=== PATIENT | female | born 1935 | race Caucasian/White ===

== ENCOUNTER 2017-02-07 12:14 | Inpatient (IN) | payer OTHER, BC ==
[2017-02-07 12:23] VITALS: BMI 22.8
[2017-02-07] MEDS ORDERED: SODIUM CHLORIDE 1,000 ML IV STA (13:12)
[2017-02-07] MEDS ORDERED: SODIUM CHLORIDE 0.9% 1000 ML INFUS.BAG IV PRN (13:12)
--- NOTE | 2017-02-07 13:28 | PDOC ---
History of Present Illness - General History Source: Patient, Spouse Exam Limitations: No Limitations - History of Present Illness Initial Comments: 02/07/17 14:21 The patient is an 81-year-old female presenting with her with significant PMH of diabetes, hyperlipidemia, depression, and IBS, who presents to the emergency department after a fall yesterday. Patient reports falling once before 2 days ago, and was on the ground for three hours before being found. She notes hitting her head and right upper extremity. She reports pain and bruising in her right upper and lower extremities. She notes falling again yesterday after experiencing whole body weakness. The patient describes feeling a loss of balance beginning 4 weeks ago. Her reports the patient an episode of altered mental status which lasted 4 days, reduced appetite, and not taking her medication beginning after the fall 4 weeks ago. She notes that her loss of balance has persisted to the present. She reports not using a walker or cane for movement. Patient notes not taking her Metformin until recently. Patient reports her urine is more orange than normal. Patient denies shortness of breath or chest pain. Patient denies neck pain, headache, loss of consciousness, double vision, or dizziness. Patient denies abdominal pain, nausea, or vomiting. Patient denies past surgeries. Patient denies allergies to medications. PCP: Dr. Adkins <Justin Malave - Last Filed: 02/07/17 14:22> <Elmer Contreras - Last Filed: 02/07/17 16:39> - General Chief Complaint: Injury Stated Complaint: FALL/ RT ARM BRUISES Time Seen by Provider: 02/07/17 12:36 Past History <Justin Malave - Last Filed: 02/07/17 14:22> - Past Medical History Diabetes: Yes GI Disorders: Yes Psychiatric Problems: Yes Other medical history: neurological problems? - Psycho/Social/Smoking Cessation Hx Suicidal Ideation: No Smoking History: Never smoked <Elmer Contreras - Last Filed: 02/07/17 16:39> - Past Medical History Allergies/Adverse Reactions: Allergies Allergy/AdvReac Type Severity Reaction Status Date / Time No Known Allergies Allergy Verified 02/07/17 12:18 Review of Systems - Review of Systems Constitutional: No: Chills, Fever HEENTM: No: Nose Congestion, Throat Swelling Respiratory: No: Cough, Shortness of Breath Cardiac (ROS): Yes: Lightheadedness. No: Chest Pain, Edema, Palpitations, Syncope ABD/GI: Yes: Constipated. No: Diarrhea, Nausea, Vomiting : No: Burning, Dysuria, Frequency Musculoskeletal: Yes: Muscle Pain Neurological: Yes: Dizziness. No: Headache, Seizure, Weakness All Other Systems: Reviewed and Negative <Elmer Contreras - Last Filed: 02/07/17 16:39> *Physical Exam - Vital Signs Last Vital Signs Temp Pulse Resp BP Pulse Ox 97.9 F 123 H 20 132/72 93 L 02/07/17 12:18 02/07/17 12:18 02/07/17 12:18 02/07/17 12:18 02/07/17 12:18 - Physical Exam Comments: 02/07/17 14:22 General: Patient is alert and in no acute distress. Speech is clear and appropriate. Head: Atraumatic and nontender. HEENT: Pupils are equal round and reactive to light, extraocular movements are intact. The tympanic membranes are clear, no hemotympanum. No facial deformity/ tenderness, no septal hematoma. The oropharynx is clear. Neck: The trachea is midline, there is no stridor. There is no midline cervical spine tenderness, full range of motion of neck. Chest: Nontender, no ecchymosis or abrasions. Heart: S1-S2, regular rate and rhythm. No murmurs. Lungs: Clear to auscultation bilaterally. Symmetric chest rise and symmetric breath sounds Abdomen: Soft/nontender/nondistended. Bowel sounds are normal. There is no abdominal or flank ecchymosis. Back/Pelvis: +Ecchymosis (6 cm. Linear, around ribs 7,8,9). There is no midline spine tenderness or step-off.. Extremities: +Proximal right upper arm & midforearm circumferential warmth & redness. +Pain with flexion & tension of distal right elbow. There is no extremity deformity or joint swelling. No focal bony tenderness throughout. 2+ distal pulses throughout. Neurovascularly intact distally with pulses and normal sensation. NEURO: Mental status: The patient is alert and oriented x3. Cranial nerves: Cranial nerves II through XII are intact Motor: +Full ROM. The upper extremities are 5 over 5 in all muscle groups. The lower extremities are 5 over 5 in all muscle groups. No pronator drift. Sensation: Sensation is intact to light touch throughout. Cerebellar: Hdpwyt-zvmuhv-eefq is normal in both upper extremities. Heel-knee- parkinson is normal in both lower extremities. Reflexes: 2+ and symmetric in the upper and lower extremities. Gait: Normal. Heel and toe walking are normal. Tandem gait is normal. Skin: +Healing abrasions right lower extremity (knee) Psych: Affect is appropriate. <Justin Malave - Last Filed: 02/07/17 14:22> - Vital Signs Last Vital Signs Temp Pulse Resp BP Pulse Ox 97.9 F 123 H 20 132/72 93 L 02/07/17 12:18 02/07/17 12:18 02/07/17 12:18 02/07/17 12:18 02/07/17 12:18 <Elmer Contreras - Last Filed: 02/07/17 16:39> Heart Score/ECG Review #1 ECG reviewed & interpreted by me at: 12:57 General ECG Interpretation: Sinus Rhythm (tachy at 112), Normal Intervals (qtc 458, qrs 76), No acute ischemic changes (Q V1-V3, III) Compared to previous ECG there are: No significant change (c/w 10/13/03) <Elmer Contreras - Last Filed: 02/07/17 16:39> ED Treatment Course - LABORATORY CBC & Chemistry Diagram: 02/07/17 13:00 02/07/17 13:00 - ADDITIONAL ORDERS Additional order review: Laboratory Results 02/07/17 02/07/17 02/07/17 13:14 13:00 13:00 INR 1.19 H PTT (Actin FS) 32.9 Sodium 138 Potassium 4.5 Chloride 100 Carbon Dioxide 26 Anion Gap 12 BUN 29 H Creatinine 0.7 Creat Clearance w eGFR > 60 Random Glucose 141 H Lactic Acid 1.2 Calcium 9.5 Total Bilirubin 0.7 AST 19 ALT 29 Alkaline Phosphatase 89 Creatine Kinase 154 Troponin I < 0.02 Total Protein 7.1 Albumin 3.5 02/07/17 13:00 RBC 3.88 MCV 93.2 MCHC 33.7 RDW 12.8 MPV 9.0 Neutrophils % 84.7 H Lymphocytes % 6.4 L Monocytes % 7.5 Eosinophils % 1.2 Basophils % 0.2 - Medications Given in the ED: ED Medications Discontinued Medications Generic Name Dose Route Start Last Admin Trade Name Ozzy PRN Reason Stop Dose Admin Sodium Chloride 1,000 mls @ 1,000 mls/hr 02/07/17 13:12 02/07/17 13:33 Normal Saline - IV 02/07/17 14:11 1,000 mls/hr ASDIR STA Administration <Justin Malave - Last Filed: 02/07/17 14:22> - LABORATORY CBC & Chemistry Diagram: 02/07/17 13:00 02/07/17 13:00 - RADIOLOGY Radiology Studies Ordered: Category Date Time Status CERVICAL SPINE CT W/O CONTR [CT] Stat CT Scan 02/07/17 13:[address] WITHOUT CONTRAST [CT] Stat CT Scan 02/07/17 13:13 Ordered CHEST X-RAY PORTABLE* [RAD] Stat Radiology 02/07/17 13:12 Ordered PELVIS [RAD] Stat Radiology 02/07/17 13:13 Ordered <Elmer Contreras - Last Filed: 02/07/17 16:39> Medical Decision Making - Critical Care Time Total Critical Care Time (minutes): 35 Critical Care Statement: The care of this patient involved high complexity decision making to prevent further life threatening deterioration of the patient 's condition and/or to evalute & treat vital organ system(s) failure or risk of failure. - Medical Decision Making 02/07/17 13:50 A portion of this note was documented by scribe services under my direction. I have reviewed the details of the note, within reason, and agree with the documentation with the following case summary and management plan written by me. 81-year-old female with history of hypertension, diabetes, IBS, depression/ anxiety presents with 2 falls over the last 2 days. First fall was unwitnessed 2 days ago, patient was unable to stand on her own and was on the floor for 2-3 hours, found alert on the floor by her who assisted her to her feet and stated she was generally weaker than her baseline but otherwise ambulating. Patient had another witnessed mechanical fall yesterday secondary to her weakness, no head injury or loss of consciousness. Brought in by today for progressive weakness, decreased by mouth intake, and imbalance over the last 48 hours. Of note, patient had a 4 day episode 4 weeks ago of confusion/altered mental status without other focal weakness, symptoms spontaneously resolved and she returned to baseline until 2 days ago. No recent medication changes, no other complaints on review of systems. Exam as noted. Tachycardia, relative hypoxia Right upper extremity swelling and warm erythema with some focal tenderness Otherwise neurologically nonfocal 81-year-old female with falls and generalized weakness. The differential is broad, particularly revolving around the cause of her fall. Question infectious versus metabolic versus STORE MGR ischemia, has evidence of injury versus infection in the right upper extremity. Rule out traumatic injuries. Sepsis protocol initiated given the tachycardia and low O2 sat EKG is sinus without acute ischemic changes. Check CT head and CT C-spine per injury and/or evidence of CVA, right elbow x- ray, chest x-ray and pelvis x-ray Will treat empirically for right upper extremity cellulitis Will need admission 02/07/17 15:23 white count 11.8 with slight left shift, chemistries within normal limits except for BUN of 29, normal creatinine, negative troponin, normal CK. Chest x-ray without acute pathology, CT head with chronic atrophy but no acute disease, CT of the cervical spine without fracture. Urinalysis pending, right upper extremity Doppler and x-ray pending. Plan to proceed with admission. 02/07/17 16:38 Doppler and xray without dvt or fx. Received abx for cellulitis. Straight cath for UA. Accepted for inpatient med/surg by Dr. Aguilar. <Elmer Contreras - Last Filed: 02/07/17 16:39> *DC/Admit/Observation/Transfer - Attestations Scribe Attestion: 02/07/17 14:22 Documentation prepared by Justin Malave, acting as medical data analyst for Elmer Contreras MD. <Justin Malave - Last Filed: 02/07/17 14:22> - Discharge Dispostion Admit: Yes <Elmer Contreras - Last Filed: 02/07/17 16:39> Diagnosis at time of Disposition: Frequent falls, Swelling of right upper extremity, Cellulitis of right upper extremity - Discharge Dispostion Condition at time of disposition: Fair - Referrals Referrals: Elias Adkins MD [Primary Care Provider] -
[2017-02-07] MEDS ORDERED: VANCOMYCIN 1,000 MG in DEXTROSE 5%-WATER - 250 ML IVPB ONE (13:44)
[2017-02-07] MEDS ORDERED: VANCOMYCIN 1 GRAM (PRE-DOCKED) 250 ML IVPB ONE (13:47)
[2017-02-07 13:53] LABS: BASOPHIL 0.2 % (0-2.0); EOSINOPHIL 1.2 % (0-4.5); MCH 31.4 pg (25.7-33.7); MCHC 33.7 g/dl (32.0-36.0); MEAN CELL VOLUME 93.2 fl (80-96); NEUTROPHILS 84.7 % (42.8-82.8); PLATELET COUNT 209 K/MM3 (134-434); RDW 12.8 % (11.6-15.6); WHITE BLOOD COUNT 11.8 K/mm3 (4.0-10.0)
--- NOTE | 2017-02-07 14:07 | EKG ---
Test Reason : Blood Pressure : / mmHG Vent. Rate : 112 BPM Atrial Rate : 112 BPM P-R Int : 146 ms QRS Dur : 076 ms QT Int : 336 ms P-R-T Axes : 035 -31 051 degrees QTc Int : 458 ms SINUS TACHYCARDIA POSSIBLE LEFT ATRIAL ENLARGEMENT LEFT AXIS DEVIATION RSR' V2 ANTERIOR INFARCT (CITED ON OR BEFORE 07-FEB-2017) ABNORMAL ECG WHEN COMPARED WITH ECG OF 13-OCT-2003 15:57, VENT. RATE HAS INCREASED BY 53 BPM QRS AXIS SHIFTED LEFT PROBABLE INFERIOR INFARCT OF INDETERMINATE AGE REPEAT EKG IF CLINICALLY INDICATED Confirmed by CHRIS ARECHIGA MD ([id number]) on 02/07/2017 2:07:23 PM Referred By: Confirmed By:CHRIS ARECHIGA MD
[2017-02-07 14:08] LABS: INR 1.19 (0.82-1.09); PROTHROMBIN TIME (PATIENT) 13.1 SEC (9.98-11.88)
[2017-02-07 14:10] LABS: ACTIVATED PTT 32.9 SECONDS (26.9-34.4)
[2017-02-07 14:15] LABS: ALBUMIN 3.5 g/dl (3.4-5.0); ANION GAP 12 (8-16); BILIRUBIN,TOTAL 0.7 mg/dL (0.2-1.0); CALCIUM 9.5 mg/dL (8.5-10.1); CO2 26 mmol/L (21-32); CREATININE 0.7 mg/dL (0.55-1.02); GLUCOSE,RANDOM 141 mg/dL (74-106); SGOT/AST 19 U/L (15-37); SGPT/ALT 29 U/L (12-78); TOT PROT 7.1 g/dl (6.4-8.2)
[2017-02-07 14:17] LABS: ALK PHOS 89 U/L (45-117); CPK 154 IU/L (26-192); TROPONIN I < 0.02 ng/ml (0.00-0.05)
[2017-02-07 15:37] LABS: VENOUS PH 7.39 (7.32-7.42)
[2017-02-07 15:41] LABS: VENOUS BLOOD GAS HCO3 27.5 meq/L (19-25)
[2017-02-07] MEDS ORDERED: ONDANSETRON 4 MG/2 ML VIAL IVPB PRN (16:41)
[2017-02-07] MEDS ORDERED: PIPERACILLIN/TAZOB 3.375 GM/50 ML PRE-DOCKED IV ONE (16:44)
[2017-02-07] MEDS ORDERED: SODIUM CHLORIDE 1,000 ML IV SCH (16:45)
--- NOTE | 2017-02-07 16:54 | HP ---
Admitting History and Physical - Primary Care Physician PCP: Elias Adkins - Admission Chief Complaint: I fell History of Present Illness: Mrs Winston is a very pleasant 81 year old female who comes in with falls. She had an episode about 4 weeks prior well she fell and became altered. She stopped taking all her medications and eating/drinking per the and was very confused. However he was able to get her to take her medications again and this resolved. Then 2 days ago she had an unwitnessed fall. Patient says she was getting out of her chair and lost her balance and fell. She says she did hit her head at that time and was unable to get up. She was on the floor for about 3-4 hours before she was found. She decided not to come to the hospital then. However she had a significant amount of weakness and difficulty walking secondary to loss of balance. She cannot describe the loss of balance well, but it is not vertigo or lightheadedness. She does not note listing while walking or running into butler. She says that she will be walking and then will start going in a direction without realizing it. Yesterday she sustained a second fall , this one was witnessed and she did not hit her head. She was able to get up with help but since the weakness was worsening she came in. She denies fevers, chills, passing out, change in vision, chest pain, shortness of breath, nausea, vomiting, diarrhea, constipation, or swelling. She says her urine is almost orange. She says she is "black and blue" on her extremities. She notes redness of her right arm. History Source: Patient, Family Member Limitations to Obtaining History: Clinical Condition - Past Medical History Gastrointestinal: Yes: Irritable Bowel Disease Psych: Yes: Anxiety Endocrine: Yes: Diabetes Mellitus Additional Past Medical History: carpal tunnel - Past Surgical History Additional Past Surgical History: wrist injection - Smoking History Smoking history: Never smoked - Alcohol/Substance Use Hx Alcohol Use: No History of Substance Use: reports: None - Social History Usual Living Arrangement: Yes: With Spouse ADL: Independent History of Recent Travel: No Home Medications - Allergies Allergies/Adverse Reactions: Allergies Allergy/AdvReac Type Severity Reaction Status Date / Time No Known Allergies Allergy Verified 02/07/17 12:18 - Home Medications Home Medications (free text): 1. xanax 2mg q4-6h prn. 2. amoxapine 50mg tid. 3. lipitor 40mg qhs. 4. mobic 15mg daily. 5. metformin 500mg bid. 6. metoprolol 25mg bid. 7. sertraline 100mg bid. 8. ambien 10mg qhs Family Disease History - Family Disease History Family Disease History: Diabetes: Mother Review of Systems Findings/Remarks: full review of systems obtained, as per HPI and otherwise negative Physical Examination Vital Signs: Vital Signs Temperature 36.6 C 02/07/17 12:18 Pulse Rate 123 H 02/07/17 12:18 Respiratory Rate 20 02/07/17 12:18 Blood Pressure 132/72 02/07/17 12:18 O2 Sat by Pulse Oximetry (%) 93 L 02/07/17 12:18 Constitutional: Yes: Well Nourished, No Distress, Calm Eyes: Yes: Conjunctiva Clear, EOM Intact, PERRL HENT: Yes: Atraumatic, Normocephalic Cardiovascular: Yes: Regular Rate and Rhythm. No: Gallop, Murmur, Rub Respiratory: Yes: Regular, CTA Bilaterally. No: Rales, Rhonchi, Wheezes Gastrointestinal: Yes: Normal Bowel Sounds, Soft. No: Distention, Tenderness Extremities: Yes: Erythema Edema: No Labs: CBC, BMP 02/07/17 13:00 02/07/17 13:00 Imaging - Results Chest X-ray: Report Reviewed, Image Reviewed X-ray: Report Reviewed Ultrasound: Report Reviewed Problem List - Problems (1) Cellulitis of arm, right Assessment/Plan: -patient with cellulitis of RUE -no DVT -admit to med surg -given vancomycin in the ED, will add zosyn for pseudomonal coverage since diabetic -ID consulted and aware Code(s): L03.113 - CELLULITIS OF RIGHT UPPER LIMB (2) Altered mental status Assessment/Plan: -patient quite lethargic -patient is on xanax, amoxapine, and ambien -suspect may be multifactorial with infection and multiple anxiolytics -consult neurology -decrease xanax to 1mg tid prn -amoxapine not on formulary, will ask to bring from home -while can also cause lethargy, do not want to abruptly cease -may benefit from weaning -will hold ambien currently Code(s): R41.82 - ALTERED MENTAL STATUS, UNSPECIFIED (3) Diabetes Assessment/Plan: -check Hgb A1c -continue metformin -diabetic diet -FSBS and SSI Code(s): E11.9 - TYPE 2 DIABETES MELLITUS WITHOUT COMPLICATIONS (4) Frequent falls Assessment/Plan: -suspect secondary to multiple anxiolytics -fall risk precautions -PT consult -decrease medications as above Code(s): R29.6 - REPEATED FALLS (5) HTN (hypertension) Assessment/Plan: -continue metoprolol Code(s): I10 - ESSENTIAL (PRIMARY) HYPERTENSION (6) HLD (hyperlipidemia) Assessment/Plan: -continue lipitor Code(s): E78.5 - HYPERLIPIDEMIA, UNSPECIFIED (7) Anxiety Assessment/Plan: -as above Code(s): F41.9 - ANXIETY DISORDER, UNSPECIFIED
[2017-02-07] MEDS ORDERED: PIPERACILLIN/TAZOB 3.375 GM 50 ML IVPB ONE (17:07)
--- NOTE | 2017-02-07 17:44 | PN ---
Progress Note (short form) - Note Progress Note: ID Consult dictated Cellulitis R UE Possible sepsis secondary to cellulitis Toxic metabolic encephalopathy Hx falls Await c/s Empiric cefazolin elevationm
[2017-02-07 18:14] LABS: URINE APPEARANCE CLEAR; URINE BILIRUBIN NEGATIVE (NEGATIVE); URINE BLOOD NEGATIVE (NEGATIVE); URINE COLOR YELLOW; URINE GLUCOSE (UA) NEGATIVE (NEGATIVE); URINE KETONE TRACE (NEGATIVE); URINE NITRITE NEGATIVE (NEGATIVE); URINE PROTEIN NEGATIVE (NEGATIVE); URINE UROBILINOGEN NEGATIVE mg/dL (0.2-1.0)
[2017-02-07 18:26] LABS: URINE LEUK ESTERASE 2+ (NEGATIVE)
[2017-02-07] MEDS: CEFAZOLIN 2 GM/D5W 50 ML IVPB SCH (19:03)
[2017-02-07] MEDS ORDERED: ACETAMINOPHEN 325 MG TABLET (FP) ONE (19:14)
[2017-02-07] MEDS: ACETAMINOPHEN 325 MG TABLET (FP) PO PRN (19:16)
[2017-02-07 19:33] LABS: URINE HYALINE CAST 1 /lpf; URINE MUCUS RARE; URINE RBC 1 /hpf (0-3); URINE WBC 42 /hpf (3-5)
[2017-02-07] MEDS: INSULIN SLIDING SCALE (NOVOLOG) 1 VIAL SQ SCH (21:54)
[2017-02-07] MEDS: ATORVASTATIN CA 40 MG TABLET (FP) PO SCH (21:57)
[2017-02-07] MEDS: METOPROLOL TARTRATE 25 MG TABLET (FP) PO SCH (21:57)
[2017-02-07] MEDS: SERTRALINE HCL 50 MG TABLET (FP) PO SCH (21:57)
[2017-02-08] MEDS: ACETAMINOPHEN 325 MG TABLET (FP) PO PRN (00:23)
[2017-02-08] MEDS: ALPRAZolam 2 MG TABLET PO PRN ×3 (00:23→21:11)
[2017-02-08] MEDS: CEFAZOLIN 2 GM/D5W 50 ML IVPB SCH ×3 (01:07→17:46)
[2017-02-08] MEDS: metFORMIN HCL 500 MG TABLET (FP) PO SCH ×2 (06:15→17:46)
[2017-02-08] MEDS: INSULIN SLIDING SCALE (NOVOLOG) 1 VIAL SQ SCH ×4 (06:15→21:09)
[2017-02-08 07:14] LABS: BASOPHIL 0.2 % (0-2.0); EOSINOPHIL 3.7 % (0-4.5); MCH 31.5 pg (25.7-33.7); MCHC 34.5 g/dl (32.0-36.0); MEAN CELL VOLUME 91.5 fl (80-96); MEAN PLT VOLUME 8.1 fl (7.5-11.1); NEUTROPHILS 78.7 % (42.8-82.8); PLATELET COUNT 209 K/MM3 (134-434); RDW 12.3 % (11.6-15.6); WHITE BLOOD COUNT 7.3 K/mm3 (4.0-10.0)
[2017-02-08 07:32] LABS: ANION GAP 9 (8-16); CALCIUM 8.7 mg/dL (8.5-10.1); CO2 25 mmol/L (21-32); CREATININE 0.5 mg/dL (0.55-1.02); GLUCOSE,RANDOM 145 mg/dL (74-106); MAGNESIUM 1.7 mg/dL (1.8-2.4); PHOSPHOROUS 2.5 mg/dL (2.5-4.9)
--- NOTE | 2017-02-08 07:46 | CONS ---
DATE OF CONSULTATION: DATE OF DICTATION: 02/07/2017 The patient is an 81-year-old female who is evaluated for cellulitis of the right upper extremity. History was obtained from the patient as well as her present at the time of the examination. The patient has had a history of recurrent falls at home. She had recently fallen at home and had been on the floor for approximately 3 hours. Prior to admission she fell sustaining trauma to her right upper and lower extremities as well as her head. She presented to the emergency room where she is found to have cellulitis of the right upper extremity. According to the notes she has had some increased confusion over the past several days and anorexia. She denies any pain at the present time. No reported fever or shaking chills. PAST MEDICAL HISTORY: Positive for diabetes mellitus, hyperlipidemia, irritable bowel, depression. ALLERGIES: No known allergies. MEDICATIONS: Include Zofran, Lovenox, Zoloft, Xanax, Lopressor, Glucophage, and Lipitor. SOCIAL HISTORY: She resides at home with her . She is a nonsmoker, nondrinker. SYSTEMS REVIEW: Neurologic: Positive for altered mentation. Cardiac: Negative chest pain or palpitations. Respiratory: Negative cough or sputum production. Gastrointestinal: Negative vomiting or diarrhea. Genitourinary: Negative for urinary tract infection. LABORATORY DATA: White count 11.8, hematocrit 36.1, platelet count 209, BUN 29, creatinine 0.7, liver enzymes normal, blood and urine cultures pending. Chest x-ray negative for acute infiltrate. Doppler exam right upper extremity negative for a DVT. X-ray negative for fracture. PHYSICAL EXAMINATION: General: She is awake. She appears mildly confused. Vital Signs: Temperature 98.2, blood pressure 122/76, pulse 95 regular, respirations 20 per minute. HEENT: Sclerae anicteric. Heart: Heart sounds S1, S2. Lungs: Clear. Abdomen: Soft. No tenderness elicited, no mass, rebound or rigidity. Extremities: There is diffuse swelling of the right upper extremity from the area below the shoulder to the mid forearm. There is confluent erythema, warmth, tenderness, and induration involving the extensor aspect of the right upper extremity. There is increased induration and erythema at the ulnar aspect of the antecubital fossa. There is slight fluctuance present over the olecranon process. There are abrasions present at the olecranon process, the right knee and right lateral malleolus. The abrasion is dry. There is no purulent drainage. There is no significant surrounding erythema. IMPRESSION: 1. Cellulitis of the right upper extremity. 2. Possible sepsis secondary to cellulitis. 3. Toxic metabolic encephalopathy. 4. History of recurrent falls. Await culture results. Empiric antibiotic coverage with cefazolin 2 gm IV piggyback every 8 hours. Elevation. Will follow. Thank you for the kind referral. LADY LOPEZ M.D. [id number]
[2017-02-08] MEDS: METOPROLOL TARTRATE 25 MG TABLET (FP) PO SCH ×2 (09:41→21:09)
[2017-02-08] MEDS: SERTRALINE HCL 50 MG TABLET (FP) PO SCH ×2 (09:41→21:08)
[2017-02-08] MEDS: ENOXAPARIN NA (PORCINE) 40 MG/0.4 ML DISP.SYRIN SQ SCH (09:42)
--- NOTE | 2017-02-08 10:01 | PN ---
Progress Note (short form) - Note Progress Note: patient reports decrease in swelling of the right arm Vital Signs Period Temp Pulse Resp BP Sys/Mazariegos Pulse Ox Last 24 Hr 97.9 F-99.8 F 88-123 18-20 122-155/65-87 93-98 cor-rrr lungs clear right arm with erythema, induration, warmth ( area marked by me) no fluctuance, small abrasion at olecronan bursa- no drainage diffuse swelling of the hand as well abd soft, nt ext- abrasions of the knees and left hand 3rd finger CBC, BMP 02/08/17 06:00 02/08/17 06:00 a/p cellulitis of the right arm s/p fall day #1 cefazolin improved per patient continue cefazolin leukocytosis resolved Problem List - Problems (1) Cellulitis of arm, right Code(s): L03.113 - CELLULITIS OF RIGHT UPPER LIMB (2) Frequent falls Code(s): R29.6 - REPEATED FALLS
[2017-02-08] MEDS ORDERED: MAGNESIUM OXIDE 400 MG TABLET (FP) PO ONE (12:21)
--- NOTE | 2017-02-08 12:21 | PN ---
Progress Note, Physician Chief Complaint: Ms Winston says she is feeling better today. Still with pain in her right arm with swelling. No cp, sob, n/v. - Current Medication List Current Medications: Active Medications Acetaminophen (Tylenol -) 650 mg PO Q4H PRN PRN Reason: FEVER OR PAIN Last Admin: 02/08/17 00:23 Dose: 650 mg Alprazolam (Xanax -) 1 mg PO Q8H PRN PRN Reason: ANXIETY Last Admin: 02/08/17 09:50 Dose: 1 mg Atorvastatin Calcium (Lipitor -) [address] [facility] Last Admin: 02/07/17 21:57 Dose: 40 mg Enoxaparin Sodium (Lovenox -) [address] [facility] Last Admin: 02/08/17 09:42 Dose: 40 mg Cefazolin Sodium/Dextrose (Ancef 2 Gm Premixed Ivpb -) 50 mls @ 100 mls/hr IVPB Q8H-IV [facility] Last Admin: 02/08/17 09:42 Dose: 100 mls/hr Insulin Aspart (Novolog Vial Sliding Scale -) [address] [facility] PRN Reason: Protocol Last Admin: 02/08/17 11:55 Dose: Not Given Metformin HCl (Glucophage -) 500 mg PO BID@0700,1630 [facility] Last Admin: 02/08/17 06:15 Dose: 500 mg Metoprolol Tartrate (Lopressor -) [address] [facility] Last Admin: 02/08/17 09:41 Dose: 25 mg Ondansetron HCl (Zofran Injection) 4 mg IVPB Q6H PRN PRN Reason: NAUSEA Sertraline HCl (Zoloft -) [address] [facility] Last Admin: 02/08/17 09:41 Dose: 100 mg Sodium Chloride (Normal Saline -) 570 ml IV Q20M PRN PRN Reason: MAP<65mm Hg OR SBP <90 - Objective Vital Signs: Vital Signs Temperature 37.7 C H 02/08/17 06:31 Pulse Rate 88 02/08/17 06:31 Respiratory Rate 20 02/08/17 06:31 Blood Pressure 122/65 02/08/17 06:31 O2 Sat by Pulse Oximetry (%) 95 02/07/17 21:00 Constitutional: Yes: Well Nourished, No Distress, Calm Cardiovascular: Yes: Regular Rate and Rhythm. No: Gallop, Murmur, Rub Respiratory: Yes: Regular, CTA Bilaterally. No: Rales, Rhonchi, Wheezes Gastrointestinal: Yes: Normal Bowel Sounds, Soft. No: Distention, Tenderness Extremities: Yes: Erythema (RUE, slightly improved today) Edema: Yes Edema: RUE: Trace Labs: CBC, BMP 02/08/17 06:00 02/08/17 06:00 INR, PTT INR 1.19 (0.82-1.09) H 02/07/17 13:00 Problem List - Problems (1) Cellulitis of arm, right Code(s): L03.113 - CELLULITIS OF RIGHT UPPER LIMB (2) Altered mental status Code(s): R41.82 - ALTERED MENTAL STATUS, UNSPECIFIED (3) Diabetes Code(s): E11.9 - TYPE 2 DIABETES MELLITUS WITHOUT COMPLICATIONS (4) Frequent falls Code(s): R29.6 - REPEATED FALLS (5) HTN (hypertension) Code(s): I10 - ESSENTIAL (PRIMARY) HYPERTENSION (6) HLD (hyperlipidemia) Code(s): E78.5 - HYPERLIPIDEMIA, UNSPECIFIED (7) Anxiety Code(s): F41.9 - ANXIETY DISORDER, UNSPECIFIED Assessment/Plan (1) Cellulitis of arm, right Assessment/Plan: -appreciate ID assistance -continue cefazolin -improving Code(s): L03.113 - CELLULITIS OF RIGHT UPPER LIMB (2) Altered mental status Assessment/Plan: -much improved today -multifactorial -continue treating cellulitis -continue with decrease in anxiolytics -neurology consulted Code(s): R41.82 - ALTERED MENTAL STATUS, UNSPECIFIED (3) Diabetes Assessment/Plan: -continue metformin and diabetic diet Code(s): E11.9 - TYPE 2 DIABETES MELLITUS WITHOUT COMPLICATIONS (4) Frequent falls Assessment/Plan: -PT consulted Code(s): R29.6 - REPEATED FALLS (5) HTN (hypertension) Assessment/Plan: -continue metoprolol Code(s): I10 - ESSENTIAL (PRIMARY) HYPERTENSION (6) HLD (hyperlipidemia) Assessment/Plan: -continue lipitor Code(s): E78.5 - HYPERLIPIDEMIA, UNSPECIFIED (7) Anxiety Assessment/Plan: -as above Code(s): F41.9 - ANXIETY DISORDER, UNSPECIFIED
--- NOTE | 2017-02-08 19:29 | CON.NEURO ---
Consult - History of Present Illness History of Present Illness: 81 year old female , had a fall and developed cellulitis and brought to hospital when she stopped taking all her medication. Her ambien was stopped and her Amoxapine and ambien was stopped , xanax was reduced. She has been feeling better . She was by herself , at the time of interview. She is feeling better. She has two fall recently, she denies any feeling of vertigo sensation or feeling everything darkening. She denies dysphagia, dysarthria or diplopia or any weakness numbness. Since Medication has been stopped she is feelign better. Spoke to nursing staff and she has been better mental status muhammad,( more alert and communicative) Medical History -- Irritable bowel disease, anxiety, Diabetes. - Past Medical History Gastrointestinal: Yes: Irritable Bowel Disease Psych: Yes: Anxiety Endocrine: Yes: Diabetes Mellitus - Alcohol/Substance Use Hx Alcohol Use: No History of Substance Use: reports: None - Smoking History Smoking history: Never smoked - Social History ADL: Independent History of Recent Travel: No Home Medications - Allergies Allergies/Adverse Reactions: Allergies Allergy/AdvReac Type Severity Reaction Status Date / Time No Known Allergies Allergy Verified 02/07/17 12:18 - Home Medications Home Medications: Ambulatory Orders Alprazolam 2 mg PO QID 02/07/17 Amoxapine [Asendin -] 50 mg PO TID 02/07/17 Atorvastatin Ca [Lipitor] 40 mg PO HS 02/07/17 Meloxicam [Mobic (Nf) -] 15 mg PO DAILY 02/07/17 Metformin HCl [Metformin HCl ER] 500 mg PO BID 02/07/17 Metoprolol Succinate [Toprol Xl -] 25 mg PO DAILY 02/07/17 Sertraline HCl [Zoloft] 100 mg PO DAILY 02/07/17 Zolpidem Tartrate [Edluar] 10 mg SL DAILY 02/07/17 Family Disease History - Family Disease History Family Disease History: Diabetes: Mother Physical Exam-Neuro Vital Signs: Vital Signs Temperature 98.4 F 02/08/17 14:45 Pulse Rate 95 H 02/08/17 14:45 Respiratory Rate 16 02/08/17 14:45 Blood Pressure 143/87 02/08/17 14:45 O2 Sat by Pulse Oximetry (%) 95 02/07/17 21:00 Labs: CBC, BMP 02/08/17 06:00 02/08/17 06:00 INR, PTT INR 1.19 (0.82-1.09) H 02/07/17 13:00 NIH Stroke Scale - Total Score NIH Stroke Scale Score: 0 Imaging - Results Cat Scan: Report Reviewed, Image Reviewed Assessment/Plan cc confusion HPI 81 year old female , had a fall and developed cellulitis and brought to hospital when she stopped taking all her medication. Her ambien was stopped and her Amoxapine and ambien was stopped , xanax was reduced. She has been feeling better . She was by herself , at the time of interview. She is feeling better. She has two fall recently, she denies any feeling of vertigo sensation or feeling everything darkening. She denies dysphagia, dysarthria or diplopia or any weakness numbness. Since Medication has been stopped she is feelign better. Spoke to nursing staff and she has been better mental status muhammad,( more alert and communicative) Medical History -- Irritable bowel disease, anxiety, Diabetes. Lives with her and denies any toxic habits ROS reviewed in chart Home Medications 1. xanax 2mg q4-6h prn. 2. amoxapine 50mg tid. 3. lipitor 40mg qhs. 4. mobic 15mg daily. 5. metformin 500mg bid. 6. metoprolol 25mg bid. 7. sertraline 100mg bid. 8. ambien 10mg qhs Neurological Examination Vital stable alert , follow command and she is able to follow complex command She told me that today is 23 february, otherwise she was able to name day of week and month. EOMI, No facial asymmetry, no facial asymmetry sensation is normal, refelx are [address] head reviewed is normal Assessment- Transient confusion , now getting better. Most likely due to intercurrent illness ( Cellulitis) and Over medicated by sedative and psych medication( xanax, ambien and amoxapine) Plan she has been feeling better after cutting down some of psych medication and antibiotic treatment for cellulitis - Unlikey to be stroke or meningitis - would like to evaluate in detail as outpatient for any Mild Cogntive Impairment. - no further recommendation from neurological point of view Thanks for consult Alirio Gamble MD Neurology Attending.
[2017-02-08] MEDS: ATORVASTATIN CA 40 MG TABLET (FP) PO SCH (21:08)
[2017-02-09] MEDS: CEFAZOLIN 2 GM/D5W 50 ML IVPB SCH (01:50)
[2017-02-09] MEDS: metFORMIN HCL 500 MG TABLET (FP) PO SCH ×2 (06:19→16:21)
[2017-02-09] MEDS: INSULIN SLIDING SCALE (NOVOLOG) 1 VIAL SQ SCH ×2 (06:22→18:23)
--- NOTE | 2017-02-09 09:11 | PN ---
Progress Note, Physician Chief Complaint: ID Cefazolin Afebrile More alert oriented - Current Medication List Current Medications: Active Medications Acetaminophen (Tylenol -) 650 mg PO Q4H PRN PRN Reason: FEVER OR PAIN Last Admin: 02/08/17 00:23 Dose: 650 mg Alprazolam (Xanax -) 1 mg PO Q8H PRN PRN Reason: ANXIETY Last Admin: 02/08/17 21:11 Dose: 1 mg Atorvastatin Calcium (Lipitor -) 40 mg PO HS [facility] Last Admin: 02/08/17 21:08 Dose: 40 mg Enoxaparin Sodium (Lovenox -) 40 mg SQ DAILY [facility] Last Admin: 02/08/17 09:42 Dose: 40 mg Cefazolin Sodium/Dextrose (Ancef 2 Gm Premixed Ivpb -) 50 mls @ 100 mls/hr IVPB Q8H-IV [facility] Last Admin: 02/09/17 01:50 Dose: 100 mls/hr Insulin Aspart (Novolog Vial Sliding Scale -) 1 vial SQ ACHS [facility] PRN Reason: Protocol Last Admin: 02/09/17 06:22 Dose: Not Given Metformin HCl (Glucophage -) 500 mg PO BID@0700,1630 [facility] Last Admin: 02/09/17 06:19 Dose: 500 mg Metoprolol Tartrate (Lopressor -) 25 mg PO BID [facility] Last Admin: 02/08/17 21:09 Dose: 25 mg Ondansetron HCl (Zofran Injection) 4 mg IVPB Q6H PRN PRN Reason: NAUSEA Sertraline HCl (Zoloft -) 100 mg PO BID [facility] Last Admin: 02/08/17 21:08 Dose: 100 mg Sodium Chloride (Normal Saline -) 570 ml IV Q20M PRN PRN Reason: MAP<65mm Hg OR SBP <90 - Objective Vital Signs: Vital Signs Temperature 97.0 F L 02/09/17 08:03 Pulse Rate 99 H 02/09/17 08:03 Respiratory Rate 18 02/09/17 08:03 Blood Pressure 170/89 02/09/17 08:03 O2 Sat by Pulse Oximetry (%) 98 02/08/17 21:00 Constitutional: Yes: Well Nourished, No Distress Extremities: Yes: Other (arm erythema less abrasion elbow No adenopathy axillary ) Labs: CBC, BMP 02/08/17 06:00 02/08/17 06:00 INR, PTT INR 1.19 (0.82-1.09) H 02/07/17 13:00 Assessment/Plan Microbiology 02/07/17 13:14 Blood - Peripheral Venous Blood Culture - Preliminary NO GROWTH OBTAINED AFTER 24 HOURS, INCUBATION TO CONTINUE FOR 4 DAYS. 02/07/17 13:14 Blood - Peripheral Venous Blood Culture - Preliminary NO GROWTH OBTAINED AFTER 24 HOURS, INCUBATION TO CONTINUE FOR 4 DAYS. Laboratory Tests 02/08/17 02/08/17 06:00 06:00 WBC 7.3 D Hgb 11.4 Plt Count 209 BUN 16 D Creatinine 0.5 L D Assessment Diabetic with right arm celllulitis improving Plan Continue Cefazolin today 1 gr q8 H Consider switch to Keflex 500mg tid for 5 days perhaps tomorrow Discussed Dr Adkins re discharge plan [place] HOFFMANN
[2017-02-09] MEDS ORDERED: DEXTROSE 5%-WATER - 50 ML IVPB ONE ×2 (09:51→17:58)
[2017-02-09] MEDS ORDERED: ceFAZolin SODIUM 1 GM VIAL ONE ×2 (09:51→17:58)
[2017-02-09] MEDS: ENOXAPARIN NA (PORCINE) 40 MG/0.4 ML DISP.SYRIN SQ SCH (10:17)
[2017-02-09] MEDS: CEFAZOLIN 1 GM in DEXTROSE 5%-WATER - 50 ML IVPB SCH ×2 (10:17→18:02)
[2017-02-09] MEDS: METOPROLOL TARTRATE 25 MG TABLET (FP) PO SCH ×2 (10:18→22:39)
[2017-02-09] MEDS: SERTRALINE HCL 50 MG TABLET (FP) PO SCH ×2 (10:18→22:38)
--- NOTE | 2017-02-09 11:48 | PN ---
Progress Note, Physician Chief Complaint: Ms Winston continues to improve. Says her arm is feeling better. Complains of a "nervous stomach". Denies cp and sob. - Current Medication List Current Medications: Active Medications Acetaminophen (Tylenol -) 650 mg PO Q4H PRN PRN Reason: FEVER OR PAIN Last Admin: 02/08/17 00:23 Dose: 650 mg Alprazolam (Xanax -) 1 mg PO Q8H PRN PRN Reason: ANXIETY Last Admin: 02/08/17 21:11 Dose: 1 mg Atorvastatin Calcium (Lipitor -) 40 mg PO HS [facility] Last Admin: 02/08/17 21:08 Dose: 40 mg Enoxaparin Sodium (Lovenox -) 40 mg SQ DAILY [facility] Last Admin: 02/09/17 10:17 Dose: 40 mg Cefazolin Sodium 1 gm/ (Dextrose) 50 mls @ 100 mls/hr IVPB Q8H-IV [facility] Last Admin: 02/09/17 10:17 Dose: 100 mls/hr Metformin HCl (Glucophage -) 500 mg PO BID@0700,1630 [facility] Last Admin: 02/09/17 06:19 Dose: 500 mg Metoprolol Tartrate (Lopressor -) 25 mg PO BID [facility] Last Admin: 02/09/17 10:18 Dose: 25 mg Ondansetron HCl (Zofran Injection) 4 mg IVPB Q6H PRN PRN Reason: NAUSEA Sertraline HCl (Zoloft -) 100 mg PO BID [facility] Last Admin: 02/09/17 10:18 Dose: 100 mg Sodium Chloride (Normal Saline -) 570 ml IV Q20M PRN PRN Reason: MAP<65mm Hg OR SBP <90 - Objective Vital Signs: Vital Signs Temperature 36.6 C 02/09/17 09:23 Pulse Rate 105 H 02/09/17 09:23 Respiratory Rate 20 02/09/17 09:23 Blood Pressure 156/80 02/09/17 09:23 O2 Sat by Pulse Oximetry (%) 98 02/09/17 09:00 Constitutional: Yes: Well Nourished, No Distress, Calm Cardiovascular: Yes: Regular Rate and Rhythm. No: Gallop, Murmur, Rub Respiratory: Yes: Regular, CTA Bilaterally. No: Rales, Rhonchi, Wheezes Gastrointestinal: Yes: Normal Bowel Sounds, Soft. No: Distention, Tenderness Extremities: Yes: Erythema (improving) Edema: Yes Edema: LUE: Trace (improving) Labs: CBC, BMP 02/08/17 06:00 02/08/17 06:00 INR, PTT INR 1.19 (0.82-1.09) H 02/07/17 13:00 Problem List - Problems (1) Cellulitis of arm, right Code(s): L03.113 - CELLULITIS OF RIGHT UPPER LIMB (2) Altered mental status Code(s): R41.82 - ALTERED MENTAL STATUS, UNSPECIFIED (3) Diabetes Code(s): E11.9 - TYPE 2 DIABETES MELLITUS WITHOUT COMPLICATIONS (4) Frequent falls Code(s): R29.6 - REPEATED FALLS (5) HTN (hypertension) Code(s): I10 - ESSENTIAL (PRIMARY) HYPERTENSION (6) HLD (hyperlipidemia) Code(s): E78.5 - HYPERLIPIDEMIA, UNSPECIFIED (7) Anxiety Code(s): F41.9 - ANXIETY DISORDER, UNSPECIFIED Assessment/Plan (1) Cellulitis of arm, right Assessment/Plan: -appreciate ID assistance -continue cefazolin -improving -possible change to keflex tomorrow per ID recommendation Code(s): L03.113 - CELLULITIS OF RIGHT UPPER LIMB (2) Altered mental status Assessment/Plan: -appreciate neurology assistance -multifactorial, anxiolytics and metabolic encephalopathy -resolved, now at baseline Code(s): R41.82 - ALTERED MENTAL STATUS, UNSPECIFIED (3) Diabetes Assessment/Plan: -continue metformin and diabetic diet -can d/c SSI and FSBS Code(s): E11.9 - TYPE 2 DIABETES MELLITUS WITHOUT COMPLICATIONS (4) Frequent falls Assessment/Plan: -PT consulted and following Code(s): R29.6 - REPEATED FALLS (5) HTN (hypertension) Assessment/Plan: -continue metoprolol Code(s): I10 - ESSENTIAL (PRIMARY) HYPERTENSION (6) HLD (hyperlipidemia) Assessment/Plan: -continue lipitor Code(s): E78.5 - HYPERLIPIDEMIA, UNSPECIFIED (7) Anxiety Assessment/Plan: -as above Code(s): F41.9 - ANXIETY DISORDER, UNSPECIFIED
[2017-02-09] MEDS: ALPRAZolam 2 MG TABLET PO PRN ×2 (12:07→20:36)
[2017-02-09] MEDS: ACETAMINOPHEN 325 MG TABLET (FP) PO PRN (13:42)
[2017-02-09] MEDS: ATORVASTATIN CA 40 MG TABLET (FP) PO SCH (22:39)
[2017-02-10] MEDS ORDERED: DEXTROSE 5%-WATER - 50 ML IVPB ONE ×3 (01:52→17:35)
[2017-02-10] MEDS ORDERED: ceFAZolin SODIUM 1 GM VIAL ONE ×3 (01:52→17:34)
[2017-02-10] MEDS: CEFAZOLIN 1 GM in DEXTROSE 5%-WATER - 50 ML IVPB SCH ×3 (02:10→18:12)
[2017-02-10] MEDS: ALPRAZolam 2 MG TABLET PO PRN ×2 (03:55→21:14)
[2017-02-10] MEDS: metFORMIN HCL 500 MG TABLET (FP) PO SCH ×2 (06:22→18:12)
[2017-02-10 08:35] LABS: BASOPHIL 0.3 % (0-2.0); MCH 30.8 pg (25.7-33.7); MCHC 33.9 g/dl (32.0-36.0); MEAN PLT VOLUME 8.1 fl (7.5-11.1); NEUTROPHILS 80.6 % (42.8-82.8); PLATELET COUNT 291 K/MM3 (134-434); RDW 12.4 % (11.6-15.6); WHITE BLOOD COUNT 12.9 K/mm3 (4.0-10.0)
[2017-02-10 08:54] LABS: ANION GAP 7 (8-16); CALCIUM 9.2 mg/dL (8.5-10.1); CO2 30 mmol/L (21-32); CREATININE 0.5 mg/dL (0.55-1.02); GLUCOSE,RANDOM 133 mg/dL (74-106); MAGNESIUM 1.7 mg/dL (1.8-2.4); PHOSPHOROUS 2.8 mg/dL (2.5-4.9)
[2017-02-10] MEDS: METOPROLOL TARTRATE 25 MG TABLET (FP) PO SCH ×2 (11:04→21:15)
[2017-02-10] MEDS: SERTRALINE HCL 50 MG TABLET (FP) PO SCH ×2 (11:04→21:14)
[2017-02-10] MEDS: ENOXAPARIN NA (PORCINE) 40 MG/0.4 ML DISP.SYRIN SQ SCH (11:04)
--- NOTE | 2017-02-10 13:38 | PN ---
Progress Note, Physician Chief Complaint: Ms Winston says she is feeling better, but still with some pain in her arm with redness. Denies cp, sob, n/v. - Current Medication List Current Medications: Active Medications Acetaminophen (Tylenol -) 650 mg PO Q4H PRN PRN Reason: FEVER OR PAIN Last Admin: 02/09/17 13:42 Dose: 650 mg Alprazolam (Xanax -) 1 mg PO Q8H PRN PRN Reason: ANXIETY Last Admin: 02/10/17 03:55 Dose: 1 mg Atorvastatin Calcium (Lipitor -) 40 mg PO HS [facility] Last Admin: 02/09/17 22:39 Dose: 40 mg Enoxaparin Sodium (Lovenox -) 40 mg SQ DAILY [facility] Last Admin: 02/10/17 11:04 Dose: 40 mg Cefazolin Sodium 1 gm/ (Dextrose) 50 mls @ 100 mls/hr IVPB Q8H-IV [facility] Last Admin: 02/10/17 11:04 Dose: 100 mls/hr Metformin HCl (Glucophage -) 500 mg PO BID@0700,1630 [facility] Last Admin: 02/10/17 06:22 Dose: 500 mg Metoprolol Tartrate (Lopressor -) 25 mg PO BID [facility] Last Admin: 02/10/17 11:04 Dose: 25 mg Ondansetron HCl (Zofran Injection) 4 mg IVPB Q6H PRN PRN Reason: NAUSEA Sertraline HCl (Zoloft -) 100 mg PO BID [facility] Last Admin: 02/10/17 11:04 Dose: 100 mg Sodium Chloride (Normal Saline -) 570 ml IV Q20M PRN PRN Reason: MAP<65mm Hg OR SBP <90 - Objective Vital Signs: Vital Signs Temperature 38.2 C H 02/09/17 18:00 Pulse Rate 92 H 02/09/17 18:00 Respiratory Rate 20 02/09/17 21:00 Blood Pressure 140/81 02/09/17 18:00 O2 Sat by Pulse Oximetry (%) 98 02/09/17 21:00 Constitutional: Yes: Well Nourished, No Distress, Calm Cardiovascular: Yes: Regular Rate and Rhythm. No: Gallop, Murmur, Rub Respiratory: Yes: Regular, CTA Bilaterally. No: Rales, Rhonchi, Wheezes Gastrointestinal: Yes: Normal Bowel Sounds, Soft. No: Distention, Tenderness Extremities: Yes: Erythema (R elbow, improved) Edema: RUE: Trace Labs: CBC, BMP 02/10/17 07:15 02/10/17 07:15 INR, PTT INR 1.19 (0.82-1.09) H 02/07/17 13:00 Problem List - Problems (1) Cellulitis of arm, right Code(s): L03.113 - CELLULITIS OF RIGHT UPPER LIMB (2) Altered mental status Code(s): R41.82 - ALTERED MENTAL STATUS, UNSPECIFIED (3) Diabetes Code(s): E11.9 - TYPE 2 DIABETES MELLITUS WITHOUT COMPLICATIONS (4) Frequent falls Code(s): R29.6 - REPEATED FALLS (5) HTN (hypertension) Code(s): I10 - ESSENTIAL (PRIMARY) HYPERTENSION (6) HLD (hyperlipidemia) Code(s): E78.5 - HYPERLIPIDEMIA, UNSPECIFIED (7) Anxiety Code(s): F41.9 - ANXIETY DISORDER, UNSPECIFIED Assessment/Plan (1) Cellulitis of arm, right Assessment/Plan: -appreciate ID assistance -patient with fevers and increased WBC today -erythema looking improved -however considering fevers and leukocytosis still needing IV antibiotics -cefazolin decreased to 1gm q8h Code(s): L03.113 - CELLULITIS OF RIGHT UPPER LIMB (2) Altered mental status Assessment/Plan: -appreciate neurology assistance -multifactorial, anxiolytics and metabolic encephalopathy -resolved, now at baseline Code(s): R41.82 - ALTERED MENTAL STATUS, UNSPECIFIED (3) Diabetes Assessment/Plan: -continue metformin and diabetic diet -can d/c SSI and FSBS Code(s): E11.9 - TYPE 2 DIABETES MELLITUS WITHOUT COMPLICATIONS (4) Frequent falls Assessment/Plan: -PT consulted and following Code(s): R29.6 - REPEATED FALLS (5) HTN (hypertension) Assessment/Plan: -continue metoprolol Code(s): I10 - ESSENTIAL (PRIMARY) HYPERTENSION (6) HLD (hyperlipidemia) Assessment/Plan: -continue lipitor Code(s): E78.5 - HYPERLIPIDEMIA, UNSPECIFIED (7) Anxiety Assessment/Plan: -as above Code(s): F41.9 - ANXIETY DISORDER, UNSPECIFIED
[2017-02-10] MEDS: ATORVASTATIN CA 40 MG TABLET (FP) PO SCH (21:14)
[2017-02-11] MEDS ORDERED: DEXTROSE 5%-WATER - 50 ML IVPB ONE ×4 (00:17→20:53)
[2017-02-11] MEDS ORDERED: ceFAZolin SODIUM 1 GM VIAL ONE ×4 (00:17→20:53)
[2017-02-11] MEDS: CEFAZOLIN 1 GM in DEXTROSE 5%-WATER - 50 ML IVPB SCH ×3 (02:30→17:50)
[2017-02-11] MEDS: metFORMIN HCL 500 MG TABLET (FP) PO SCH ×2 (06:08→17:50)
[2017-02-11 08:01] LABS: ANION GAP 9 (8-16); CALCIUM 9.2 mg/dL (8.5-10.1); CO2 28 mmol/L (21-32); CREATININE 0.6 mg/dL (0.55-1.02); GLUCOSE,RANDOM 141 mg/dL (74-106); MAGNESIUM 1.6 mg/dL (1.8-2.4); PHOSPHOROUS 2.9 mg/dL (2.5-4.9)
[2017-02-11 08:12] LABS: BASOPHIL 0.2 % (0-2.0); EOSINOPHIL 1.5 % (0-4.5); MCHC 35.5 g/dl (32.0-36.0); MEAN PLT VOLUME 8.2 fl (7.5-11.1); NEUTROPHILS 81.9 % (42.8-82.8); PLATELET COUNT 275 K/MM3 (134-434); RDW 12.6 % (11.6-15.6); WHITE BLOOD COUNT 9.1 K/mm3 (4.0-10.0)
--- NOTE | 2017-02-11 08:42 | PN ---
Progress Note (short form) - Note Progress Note: Patient seen and examined. Chart reviewed. Patient well known to me from outpatient care. Currently sitting up in chair. No new chest discomfort, palpitations fever or rigors No new arm pain Swelling and erythema of RUE decreased. [employer] Artist notes and progress notes,labs and radiologic procedures reviewed. Positive blood culture of note (possible contaminant) Medications Acetaminophen (Tylenol -) 650 mg PO Q4H PRN PRN Reason: FEVER OR PAIN Last Admin: 02/09/17 13:42 Dose: 650 mg Alprazolam (Xanax -) 1 mg PO Q8H PRN PRN Reason: ANXIETY Last Admin: 02/10/17 21:14 Dose: 1 mg Ondansetron HCl (Zofran Injection) 4 mg IVPB Q6H PRN PRN Reason: NAUSEA Cefazolin Sodium 1 gm/ (Dextrose) 50 mls @ 100 mls/hr IVPB Q8H-IV [facility] Last Admin: 02/11/17 02:30 Dose: 100 mls/hr Enoxaparin Sodium (Lovenox -) 40 mg SQ DAILY [facility] Last Admin: 02/10/17 11:04 Dose: 40 mg Sertraline HCl (Zoloft -) 100 mg PO BID [facility] Last Admin: 02/10/17 21:14 Dose: 100 mg Metoprolol Tartrate (Lopressor -) 25 mg PO BID [facility] Last Admin: 02/10/17 21:15 Dose: 25 mg Metformin HCl (Glucophage -) 500 mg PO BID@0700,1630 [facility] Last Admin: 02/11/17 06:08 Dose: 500 mg Sodium Chloride (Normal Saline -) 570 ml IV Q20M PRN PRN Reason: MAP<65mm Hg OR SBP <90 Atorvastatin Calcium (Lipitor -) 40 mg PO HS [facility] Last Admin: 02/10/17 21:14 Dose: 40 mg Selected Entries 02/11/17 06:00 Temperature 98.8 F Pulse Rate 94 H Respiratory 18 Rate Blood Pressure 153/74 Laboratory Tests 02/11/17 06:00 Sodium 139 Potassium 3.8 Chloride 102 Carbon Dioxide 28 BUN 17 D Creatinine 0.6 Random Glucose 141 H Calcium 9.2 Phosphorus 2.9 Magnesium 1.6 L CBC pending from today Chest Clear Cor RRR Abd Soft non-tender No mass Ext No edema of LEs RUE with less erythema and less swelling Olecrenon bursa with some fluid Neuro No new deficit Assessment and Plan Cellulitis Continue iv Ancef at current dose Cellulitic reaction of RUE has improved. Source likely from abraded area of olecrenon bursa. Positive blood culture of note. Although this may represent a contaminant, skin steve (staph epi) could be a likely source of infection Positive blood culture As above DM Stable Mental status change Likely multifactorial effects of underlying anxiety, medication effect and underlying infection Olecrenon bursitis Improving IBS Chronic stable Anxiety Sees psychiatrist as outpatient Hypomagnesemia Replete Systolic hypertension Leukocytosis Re-assess Possible discharge in AM if stable
[2017-02-11] MEDS: ALPRAZolam 2 MG TABLET PO PRN ×2 (08:47→17:49)
[2017-02-11] MEDS: ENOXAPARIN NA (PORCINE) 40 MG/0.4 ML DISP.SYRIN SQ SCH (10:26)
[2017-02-11] MEDS: MAGNESIUM CL 64 MG TABLET.SA PO SCH (10:26)
[2017-02-11] MEDS: METOPROLOL TARTRATE 25 MG TABLET (FP) PO SCH ×2 (10:27→21:29)
[2017-02-11] MEDS: SERTRALINE HCL 50 MG TABLET (FP) PO SCH ×2 (10:27→21:29)
[2017-02-11] MEDS: ATORVASTATIN CA 40 MG TABLET (FP) PO SCH (21:29)
[2017-02-12] MEDS: CEFAZOLIN 1 GM in DEXTROSE 5%-WATER - 50 ML IVPB SCH ×2 (01:26→09:07)
[2017-02-12] MEDS: ALPRAZolam 2 MG TABLET PO PRN ×2 (07:03→15:29)
[2017-02-12] MEDS: metFORMIN HCL 500 MG TABLET (FP) PO SCH ×2 (07:03→15:29)
[2017-02-12 08:07] LABS: BASOPHIL 0.3 % (0-2.0); EOSINOPHIL 0.5 % (0-4.5); MCH 30.8 pg (25.7-33.7); MCHC 33.9 g/dl (32.0-36.0); MEAN PLT VOLUME 8.1 fl (7.5-11.1); NEUTROPHILS 84.7 % (42.8-82.8); PLATELET COUNT 367 K/MM3 (134-434); RDW 12.4 % (11.6-15.6); WHITE BLOOD COUNT 14.5 K/mm3 (4.0-10.0)
[2017-02-12 08:30] LABS: ALBUMIN 3.7 g/dl (3.4-5.0); ALK PHOS 99 U/L (45-117); ANION GAP 9 (8-16); BILIRUBIN,TOTAL 0.4 mg/dL (0.2-1.0); CALCIUM 9.5 mg/dL (8.5-10.1); CO2 29 mmol/L (21-32); CREATININE 0.6 mg/dL (0.55-1.02); GLUCOSE,RANDOM 166 mg/dL (74-106); MAGNESIUM 1.6 mg/dL (1.8-2.4); SGOT/AST 46 U/L (15-37); SGPT/ALT 33 U/L (12-78); TOT PROT 7.6 g/dl (6.4-8.2)
--- NOTE | 2017-02-12 08:49 | PN ---
Progress Note (short form) - Note Progress Note: Patient seen and examined. Chart reviewed. Patient well known to me from outpatient care. Currently sitting up in bed. No new chest discomfort, palpitations fever or rigors. No new arm pain. Swelling and erythema of RUE continue to improve. [employer] Header notes and progress notes,labs and radiologic procedures reviewed. Positive blood culture of note with ?staph epidermidis ( possible contaminant?) Nurses describe periods of mild confusion. Microbiology 02/07/17 13:14 Blood - Peripheral Venous Blood Culture - Preliminary Staphylococcus Coagulase Neg Selected Entries 02/11/17 02/12/17 21:00 06:00 Temperature 98.2 F Pulse Rate 105 H Respiratory 18 Rate Blood Pressure 158/88 O2 Sat by Pulse 97 Oximetry (%) Oxygen Delivery Room Air Method Laboratory Tests 02/12/17 02/12/17 06:30 06:30 WBC 14.5 H D Hgb 12.8 Hct 37.8 Plt Count 367 D Sodium 139 Potassium 3.6 Chloride 101 Carbon Dioxide 29 BUN 19 H Creatinine 0.6 Random Glucose 166 H Calcium 9.5 Magnesium 1.6 L Total Bilirubin 0.4 D AST 46 H D ALT 33 Alkaline Phosphatase 99 Total Protein 7.6 Albumin 3.7 Chest Clear Cor RRR Abd Soft non-tender No mass Ext No edema of LEs RUE with less erythema and less swelling Olecrenon bursa with less swelling/fluid Neuro No new deficit Assessment and Plan Cellulitis Continue iv Ancef at current dose Cellulitic reaction of RUE has improved. Source likely from abraded area of olecrenon bursa. Positive blood culture of note. Although this may represent a contaminant, skin steve (staph epi) could be a likely source of infection. Will review with ID regarding length of treatment Increase of WBC to 14.5K of note. Positive blood culture As above DM Stable Mental status change Likely multifactorial effects of underlying anxiety, medication effect and underlying infection Olecrenon bursitis Improving IBS Chronic stable Anxiety Sees psychiatrist as outpatient Hypomagnesemia Replete Systolic hypertension Leukocytosis Re-assess Possible discharge in AM if stable Will review with ID
[2017-02-12] MEDS ORDERED: ceFAZolin SODIUM 1 GM VIAL ONE (09:03)
[2017-02-12] MEDS ORDERED: DEXTROSE 5%-WATER - 50 ML IVPB ONE (09:04)
[2017-02-12] MEDS: METOPROLOL TARTRATE 25 MG TABLET (FP) PO SCH ×2 (09:07→21:50)
[2017-02-12] MEDS: SERTRALINE HCL 50 MG TABLET (FP) PO SCH ×2 (09:07→21:50)
[2017-02-12] MEDS: ENOXAPARIN NA (PORCINE) 40 MG/0.4 ML DISP.SYRIN SQ SCH (09:07)
[2017-02-12] MEDS ORDERED: PT OWN MED DRAWER 7, Y5N ONE (09:09)
[2017-02-12] MEDS: MAGNESIUM CL 64 MG TABLET.SA PO SCH (09:10)
--- NOTE | 2017-02-12 15:09 | PN ---
Progress Note, Physician History of Present Illness: OOB in chair No c/o arm pain No fever/ chills BC SCN x 1 bottle Leukocytosis noted - Current Medication List Current Medications: Active Medications Acetaminophen (Tylenol -) 650 mg PO Q4H PRN PRN Reason: FEVER OR PAIN Last Admin: 02/09/17 13:42 Dose: 650 mg Alprazolam (Xanax -) 1 mg PO Q8H PRN PRN Reason: ANXIETY Last Admin: 02/12/17 07:03 Dose: 1 mg Atorvastatin Calcium (Lipitor -) 40 mg PO HS [facility] Last Admin: 02/11/17 21:29 Dose: 40 mg Enoxaparin Sodium (Lovenox -) 40 mg SQ DAILY [facility] Last Admin: 02/12/17 09:07 Dose: 40 mg Magnesium Chloride (Slow-Mag -) 128 mg PO DAILY [facility] Last Admin: 02/12/17 09:10 Dose: 128 mg Metformin HCl (Glucophage -) 500 mg PO BID@0700,1630 [facility] Last Admin: 02/12/17 07:03 Dose: 500 mg Metoprolol Tartrate (Lopressor -) 25 mg PO BID [facility] Last Admin: 02/12/17 09:07 Dose: 25 mg Sertraline HCl (Zoloft -) 100 mg PO BID [facility] Last Admin: 02/12/17 09:07 Dose: 100 mg - Objective Vital Signs: Vital Signs Temperature 97.9 F 02/12/17 11:56 Pulse Rate 98 H 02/12/17 11:56 Respiratory Rate 16 02/12/17 11:56 Blood Pressure 153/91 02/12/17 11:56 O2 Sat by Pulse Oximetry (%) 98 02/12/17 08:40 Constitutional: Yes: No Distress Eyes: Yes: Conjunctiva Clear Cardiovascular: Yes: Regular Rate and Rhythm, S1, S2 Respiratory: Yes: CTA Bilaterally Gastrointestinal: Yes: Normal Bowel Sounds, Soft. No: Tenderness Extremities: Yes: Other (R UE erythema resolved) Labs: CBC, BMP 02/12/17 06:30 02/12/17 06:30 INR, PTT INR 1.19 (0.82-1.09) H 02/07/17 13:00 Assessment/Plan Cellulitis R UE resolved + BC SCN x 1 bottle likely contaminant OK for discharge home on po Keflex
[2017-02-12] MEDS: ATORVASTATIN CA 40 MG TABLET (FP) PO SCH (21:50)
[2017-02-13] MEDS: ALPRAZolam 2 MG TABLET PO PRN (06:24)
[2017-02-13] MEDS: metFORMIN HCL 500 MG TABLET (FP) PO SCH (06:26)
[2017-02-13 07:57] VITALS: BP 154/90; PULSE 101; TEMP 99.1
[2017-02-13 08:05] LABS: BASOPHIL 0.3 % (0-2.0); MCH 30.8 pg (25.7-33.7); MCHC 34.1 g/dl (32.0-36.0); MEAN CELL VOLUME 90.5 fl (80-96); MEAN PLT VOLUME 7.8 fl (7.5-11.1); NEUTROPHILS 85.8 % (42.8-82.8); PLATELET COUNT 307 K/MM3 (134-434); RDW 12.5 % (11.6-15.6); WHITE BLOOD COUNT 10.3 K/mm3 (4.0-10.0)
[2017-02-13 08:13] LABS: ALBUMIN 3.4 g/dl (3.4-5.0); ANION GAP 13 (8-16); CALCIUM 8.8 mg/dL (8.5-10.1); CO2 26 mmol/L (21-32); GLUCOSE,RANDOM 151 mg/dL (74-106); SGOT/AST 44 U/L (15-37); SGPT/ALT 35 U/L (12-78)
[2017-02-13 08:15] LABS: ALK PHOS 90 U/L (45-117); BILIRUBIN,TOTAL 0.9 mg/dL (0.2-1.0); C-REACTIVE PROTEIN 1.2 MG/DL (0.00-0.3); CREATININE 0.5 mg/dL (0.55-1.02); TOT PROT 6.9 g/dl (6.4-8.2)
--- NOTE | 2017-02-13 08:55 | DS ---
Physical Examination Vital Signs: Vital Signs Temperature 99.1 F 02/13/17 07:56 Pulse Rate 101 H 02/13/17 07:56 Respiratory Rate 20 02/13/17 07:56 Blood Pressure 154/90 02/13/17 07:56 O2 Sat by Pulse Oximetry (%) 98 02/12/17 21:00 Constitutional: Yes: No Distress, Anxious Eyes: No: Sclera Icterus Cardiovascular: Yes: Regular Rate and Rhythm Respiratory: Yes: CTA Bilaterally Integumentary: Yes: Erythema (Improved RUE) Neurological: Yes: Alert, Oriented Labs: CBC, BMP 02/13/17 06:30 02/13/17 06:30 Discharge Summary Reason For Visit: CELLULITIS OF RIGHT UPPER EXTREMITY/ RECCURENT FAL Current Active Problems Anxiety (Chronic) Diabetes (Chronic) HLD (hyperlipidemia) (Chronic) HTN (hypertension) (Chronic) Hospital Course: Please refer to daily notes Cellulitic reaction RUE, possibly related to olecrenon bursitis. Periods of confusion felt to be related to combination of infection and psychiatric medications. Seen by ID Condition: Good - Instructions Diet, Activity, Other Instructions: Low Na+ diabetic diet Referrals: Elias Adkins MD [Primary Care Provider] - Disposition: HOME - Home Medications Comprehensive Discharge Medication List: Ambulatory Orders Alprazolam 2 mg PO QID 02/07/17 Amoxapine [Asendin (Nf) -] 50 mg PO TID 02/07/17 Atorvastatin Ca [Lipitor] 40 mg PO HS 02/07/17 Meloxicam [Mobic (Nf) -] 15 mg PO DAILY 02/07/17 Metformin HCl [Metformin HCl ER] 500 mg PO BID 02/07/17 Metoprolol Succinate [Toprol XL -] 25 mg PO DAILY 02/07/17 Sertraline HCl [Zoloft] 100 mg PO DAILY 02/07/17 Zolpidem Tartrate [Edluar] 10 mg SL DAILY 02/07/17 Cephalexin [Keflex] 500 mg PO TID #12 capsule 02/13/17
[2017-02-13] MEDS ORDERED: PT OWN MED DRAWER 7, Y5N ONE (10:21)
[2017-02-13] MEDS: METOPROLOL TARTRATE 25 MG TABLET (FP) PO SCH (10:29)
[2017-02-13] MEDS: SERTRALINE HCL 50 MG TABLET (FP) PO SCH (10:29)
[2017-02-13] MEDS: MAGNESIUM CL 64 MG TABLET.SA PO SCH (10:29)
[2017-02-13] MEDS: ENOXAPARIN NA (PORCINE) 40 MG/0.4 ML DISP.SYRIN SQ SCH (10:29)
[2017-02-13 10:57] LABS: ERYTHROCYTE SEDIMENTATION RATE 65 mm/hr (0-30)
== END 2017-02-13 10:20 | disposition home or self-care (01) | DRG 602 ==
LOC: JER 12:14 → JERBED 16:39 → J8W 20:41
PROVIDERS: ADMIT Internal Medicine; ATTEND Internal Medicine
DX: L03.113 Cellulitis of right upper limb (principal); G92 Toxic encephalopathy; E11.9 Type 2 diabetes mellitus without complications; E78.5 Hyperlipidemia, unspecified; I10 Essential (primary) hypertension; F41.9 Anxiety disorder, unspecified; E83.42 Hypomagnesemia; D72.829 Elevated white blood cell count, unspecified; R41.82 Altered mental status, unspecified; R29.6 Repeated falls; M70.20 Olecranon bursitis, unspecified elbow
CPT/HCPCS: 36415; 70450-TC; 71010-TC; 72125-TC; 72170-TC; 73070-TC-RT; 80048; 80053; 81003; 81015; 82553; 82803; 83036; 83605; 83735; 84100; 84484; 85025; 85610; 85651; 85730; 86140; 86850; 86900; 86901; 87040; 87086; 87186; 93005; 93010; 93971; 97116-GP; 97161-GP; 99283-25

== ENCOUNTER 2019-04-16 15:08 | Inpatient (IN) | payer OTHER, BC ==
[2019-04-16 15:18] VITALS: BMI 19.8
--- NOTE | 2019-04-16 15:29 | PDOC ---
History of Present Illness - General History Source: Patient Exam Limitations: No Limitations - History of Present Illness Initial Comments: 04/16/19 15:29 81y F hx of dm, hl, depression, ibs, presents to the ED sp fall. The patient was in her usual state of health until approximately 1 hour prior to presentation when the patient was getting ready to go out noted that while she was walking to the car she stumbled and fell on grass. There was no associated LOC, the patient did strike her head on the grass. EMS was called. thinks that the patient may have taken an extra dose of her medications as she apparently had taken her 6 PM dose of medications. Upon arrival I was immediately upon bedside examining the patient patient was alert, oriented, no focal complaints besides mild pain in her left face. Patient denies any headache, nausea, vomiting, blurry vision, focal numbness, weakness, tingling, chest pain, palpitations, abdominal pain. Patient denies any recent fevers, chills, cough, diarrhea, melena, BPR. PCP: Dr. Adkins <Cabrera Scott - Last Filed: 04/16/19 22:12> <Cira Morris - Last Filed: 04/17/19 00:06> - General Chief Complaint: Injury Stated Complaint: LOW BACK PAIN Time Seen by Provider: 04/16/19 15:24 Past History - Past Medical History COPD: No Diabetes: Yes GI Disorders: Yes Hypercholesterolemia: Yes Psychiatric Problems: Yes - Psycho Social/Smoking Cessation Hx Smoking History: Never smoked Hx Alcohol Use: No Drug/Substance Use Hx: No <Cabrera Scott - Last Filed: 04/16/19 22:12> <Cira Morris - Last Filed: 04/17/19 00:06> - Past Medical History Allergies/Adverse Reactions: Allergies Allergy/AdvReac Type Severity Reaction Status Date / Time No Known Allergies Allergy Verified 04/16/19 15:10 Home Medications: Ambulatory Orders Alprazolam 2 mg PO BID 02/07/17 Atorvastatin Ca [Lipitor] 40 mg PO HS 02/07/17 Meloxicam [Mobic (Nf) -] 15 mg PO HS 02/07/17 Metoprolol Succinate [Toprol XL -] 25 mg PO DAILY 02/07/17 metFORMIN HCL [Metformin ER Osmotic] 500 mg PO BID 02/07/17 Review of Systems - Review of Systems Able to Perform ROS?: Yes Comments:: 04/16/19 15:31 Constitutional - +sp fall, +head injury no reported Fever, Chills, HEENT: no reported vision changes, sore throat Respiratory: no reported cough, sob, hemoptysis Cardiac: no reported chest pain, palpitations, light headedness, leg swelling Abd/GI: no reported abd pain, nausea, vomiting, blood per rectum, melena, diarrhea : no reported dysuria, frequency, discharge Musculskelatal - no reported back pain, joint swelling skin - no reported bruising, erythema, rash neurological: +L facial pain no reported numbness, focal weakness, tingling, ataxia, hematologic: no reported easy bruising, easy bleeding <Tyler,Cabrera - Last Filed: 04/16/19 22:12> *Physical Exam - Vital Signs Last Vital Signs Temp Pulse Resp BP Pulse Ox 0/0 L 04/16/19 15:10 - Physical Exam Comments: 04/16/19 15:31 GENERAL: The patient is slighlty somonolent but easily arousable to oivce, Thin appearing, no acute distress HEAD: Normocephalic, Contusion to the left cheek and left lateral forehead. No focal bony tenderness EYES: extraocular movements intact, sclera anicteric, conjunctiva clear. PERRL ENT: Normal voice, dry mucous membranes. NECK: Normal range of motion, supple LUNGS: Breath sounds equal, clear to auscultation bilaterally. No wheezes, no rhonchi, no rales. HEART: irregular HR ABDOMEN: Soft, nontender, No guarding, no rebound. No CVA tenderness EXTREMITIES: Normal range of motion, no edema. NEUROLOGICAL: L sided arm weakness (+drift), L sided leg weakness (slight drift) , sensation intact throughout. No facial asymmetry. PSYCH: Normal mood, normal affect. SKIN: Warm, Dry, normal turgor, <Tyler,Cabrera - Last Filed: 04/16/19 22:12> - Vital Signs Last Vital Signs Temp Pulse Resp BP Pulse Ox 97.4 F L 72 18 125/57 L 95 04/16/19 15:10 04/16/19 17:05 04/16/19 17:05 04/16/19 17:05 04/16/19 17:05 <Jermaine Morristiffany Figueroa - Last Filed: 04/17/19 00:06> Heart Score/ECG Review - ECG Impressions Comment:: 04/16/19 18:21 Twelve-lead EKG was performed and reviewed by me. There is normal sinus rhythm with a normal rate. Rate of 76 Abnormal axis <Tyler,Cabrera - Last Filed: 04/16/19 22:12> ED Treatment Course - LABORATORY CBC & Chemistry Diagram: 04/16/19 15:38 04/16/19 15:38 - RADIOLOGY Radiology Studies Ordered: Category Date Time Status HEAD CT (STROKE) [CT] Stat CT Scan 04/16/19 15:25 Ordered <Tyler,Cabrera - Last Filed: 04/16/19 22:12> - LABORATORY CBC & Chemistry Diagram: 04/16/19 15:38 04/16/19 15:38 - ADDITIONAL ORDERS Additional order review: Laboratory Results 04/16/19 04/16/19 04/16/19 15:38 15:38 15:38 PT with INR INR Sodium Potassium Chloride Carbon Dioxide Anion Gap BUN Creatinine Est GFR (CKD-EPI)AfAm Est GFR (CKD-EPI)NonAf Random Glucose Calcium Total Bilirubin AST ALT Alkaline Phosphatase Creatine Kinase 51 Troponin I < 0.03 Total Protein Albumin Triglycerides Cholesterol Total LDL Cholesterol HDL Cholesterol Blood Type O POSITIVE Antibody Screen Negative 04/16/19 04/16/19 04/16/19 15:38 15:38 15:38 PT with INR 12.2 INR 1.09 Sodium 139 Potassium 4.2 Chloride 105 Carbon Dioxide 28 Anion Gap 6 L BUN 24.0 H Creatinine 0.7 Est GFR (CKD-EPI)AfAm 93.52 Est GFR (CKD-EPI)NonAf 80.69 Random Glucose 118 H Calcium 9.2 Total Bilirubin 0.4 AST 23 ALT 19 Alkaline Phosphatase 81 Creatine Kinase Cancelled Troponin I Cancelled Total Protein 6.5 Albumin 4.1 Triglycerides 226 H Cholesterol 143 Total LDL Cholesterol 40 HDL Cholesterol 57 Blood Type Antibody Screen 04/16/19 15:38 RBC 3.66 MCV 93.8 MCHC 34.2 RDW 12.5 MPV 7.7 Neutrophils % 75.8 Lymphocytes % 11.3 Monocytes % 7.7 Eosinophils % 5.0 H Basophils % 0.2 - Medications Given in the ED: ED Medications Discontinued Medications Generic Name Dose Route Start Last Admin Trade Name Ozzy PRN Reason Stop Dose Admin Aspirin 162 mg 04/16/19 16:11 04/16/19 16:26 Asa - PO 04/16/19 16:12 162 mg ONCE ONE Administration <Cira Morris - Last Filed: 04/17/19 00:06> Medical Decision Making - Medical Decision Making 04/16/19 15:33 83y F presents sp fall, some arm and leg weakness noted upon initial exam. stroke code initiated NIHSS = 2 (L arm weakness, L leg drift) 04/16/19 16:21 On reassessment I believe that the patient's weakness may be secondary To an MSK or may be chronic nature cause as it seems localized to her left shoulder the flexion extension function of her left forearm seems intact and symmetric with the right. Her strength in her lower extremities is also symmetric. Will defer TPA CT head is negative, will give the patient aspirin repeat exam - NIHSS - 1 (L arm weakness- limited to L shoulder extension, L elbow/flex/extnsion and employee health rn strength is symemtric), L leg strength is symmetric with R. 04/16/19 18:22 notes that if he thinks about it, maybe her L shoulder is weaker in general for the past several months. pt took xtra dose of alprozalam, metformin and metoprolol - her mild weakness/ somnolence/slowness to answer on arrival may have been due to extra dose of alproxalam and weakness in shulder likely chronic, no other focal weakness noted. 04/16/19 19:10 pts still generally weak, had slid down from stretcher while eating her dinner suspect possibly residual effects from polypharmcy - as she is typically unsteady on her feet,s he would be an unsafe discharge her vitals and labs were otherwise reviewed and stable no signs of bradycardia bgm stable will observe <Cabrera Scott - Last Filed: 04/16/19 22:12> Discharge <Cabrera Scott - Last Filed: 04/16/19 22:12> - Discharge Information Problems reviewed: Yes - Admission Yes <Cira Morris - Last Filed: 04/17/19 00:06> - Discharge Information Clinical Impression/Diagnosis: Lightheadedness Accidental medication overdose Qualifiers: Encounter type: initial encounter Qualified Code(s): T50.901A - Poisoning by unspecified drugs, medicaments and biological substances, accidental ( unintentional), initial encounter Condition: Guarded NIH Stroke Scale - Last Known Well Date/Time & Onset Date Last Known Well: 04/16/19 Time Last Known Well: 14:30 - Initial Evaluation Level of consciousness: Alert Ask patient the month and their age: Answers both correctly Ask patient to open & close eyes; make fist and let go: Obeys both correctly Best gaze (horizontal eye movement): Normal Visual field testing: No visual field loss Facial paresis (Show teeth/raise eyebrows/close eyes tight): Normal symmetrical movement Motor Function: Left Arm: Drift Motor Function: Right Arm: Normal (extends arm 90 (or 45) degrees for 10 seconds without drift Motor Function: Left Leg: Drift Motor Function: Right Leg: Normal (extends leg 30 degrees for 5 seconds without drift) Limb Ataxia: No ataxia Sensory(Use pinprick test arms,legs,trunk,face/side to side): Normal Best language (Describe picture, name items, read sentences): No Aphasia Dysarthria (read several words): Normal articulation Extinction and Inattention: No abnormality - Total Score NIH Stroke Scale Score: 2 <Cabrera Scott - Last Filed: 04/16/19 22:12> tPA Exclusion Checklist 0-3hr - Time Elapsed Date last known well: 04/16/19 Time last known well: 14:30 Elaspsed time: Day(s) and 7 Hour(s) and 42 Minutes - Thrombolytic Therapy Candidate Is the patient eligible for Thrombolytic Therapy?: Yes - Relative Exclusion Criteria 0-3h Rapid improvement: Yes <Cabrera Scott - Last Filed: 04/16/19 22:12>
[2019-04-16] MEDS ORDERED: SODIUM CHLORIDE 1,000 ML IV SCH (15:30)
[2019-04-16 15:51] LABS: BASO % 0.2 % (0-2.0); HEMATOCRIT 34.3 % (32.4-45.2); HEMOGLOBIN 11.7 GM/dl (10.7-15.3); LYMPH % 11.3 % (8-40); MCHC 34.2 g/dl (32.0-36.0); MEAN CELL VOLUME 93.8 fl (80-96); MEAN PLT VOLUME 7.7 fl (7.5-11.1); MONO % 7.7 % (3.8-10.2); NEUT % 75.8 % (42.8-82.8); PLATELET COUNT 185 K/MM3 (134-434); RBC 3.66 M/mm3 (3.60-5.2); RDW 12.5 % (11.6-15.6); WHITE BLOOD COUNT 10.5 K/mm3 (4.0-10.8)
[2019-04-16 16:08] LABS: INR 1.09 (0.82-1.09); PROTHROMBIN TIME (PATIENT) 12.2 SEC (10.2-13.0)
[2019-04-16 16:10] LABS: TRIGLYCERIDES 226 mg/dl (0-150)
[2019-04-16] MEDS ORDERED: ASPIRIN 81 MG CHEWABLE TABLETS PO ONE (16:11)
[2019-04-16 16:14] LABS: ALBUMIN 4.1 g/dl (3.4-5.0); BILIRUBIN,TOTAL 0.4 mg/dl (0.2-1); CALCIUM 9.2 mg/dl (8.5-10); CREATININE 0.7 mg/dl (0.55-1.3); POTASSIUM 4.2 mmol/L (3.5-5.1); TOT PROT 6.5 g/dl (6.4-8.2)
[2019-04-16] MEDS ORDERED: ASPIRIN 81 MG CHEWABLE TABLETS ONE (16:23)
[2019-04-16 16:46] LABS: LDL CHOLESTEROL (ONLY SJRH) 40 mg/dL (5-100)
--- NOTE | 2019-04-16 20:47 | PDOC ---
*Physical Exam - Vital Signs Last Vital Signs Temp Pulse Resp BP Pulse Ox 97.4 F L 72 18 125/57 L 95 04/16/19 15:10 04/16/19 17:05 04/16/19 17:05 04/16/19 17:05 04/16/19 17:05 ED Treatment Course - LABORATORY CBC & Chemistry Diagram: 04/16/19 15:38 04/16/19 15:38 - ADDITIONAL ORDERS Additional order review: Laboratory Results 04/16/19 04/16/19 04/16/19 15:38 15:38 15:38 PT with INR INR Sodium Potassium Chloride Carbon Dioxide Anion Gap BUN Creatinine Est GFR (CKD-EPI)AfAm Est GFR (CKD-EPI)NonAf Random Glucose Calcium Total Bilirubin AST ALT Alkaline Phosphatase Creatine Kinase 51 Troponin I < 0.03 Total Protein Albumin Triglycerides Cholesterol Total LDL Cholesterol HDL Cholesterol Blood Type O POSITIVE Antibody Screen Negative 04/16/19 04/16/19 04/16/19 15:38 15:38 15:38 PT with INR 12.2 INR 1.09 Sodium 139 Potassium 4.2 Chloride 105 Carbon Dioxide 28 Anion Gap 6 L BUN 24.0 H Creatinine 0.7 Est GFR (CKD-EPI)AfAm 93.52 Est GFR (CKD-EPI)NonAf 80.69 Random Glucose 118 H Calcium 9.2 Total Bilirubin 0.4 AST 23 ALT 19 Alkaline Phosphatase 81 Creatine Kinase Cancelled Troponin I Cancelled Total Protein 6.5 Albumin 4.1 Triglycerides 226 H Cholesterol 143 Total LDL Cholesterol 40 HDL Cholesterol 57 Blood Type Antibody Screen 04/16/19 15:38 RBC 3.66 MCV 93.8 MCHC 34.2 RDW 12.5 MPV 7.7 Neutrophils % 75.8 Lymphocytes % 11.3 Monocytes % 7.7 Eosinophils % 5.0 H Basophils % 0.2 - Medications Given in the ED: ED Medications Discontinued Medications Generic Name Dose Route Start Last Admin Trade Name Freq PRN Reason Stop Dose Admin Aspirin 162 mg 04/16/19 16:11 04/16/19 16:26 Asa - PO 04/16/19 16:12 162 mg ONCE ONE Administration Discharge - Discharge Information Problems reviewed: Yes Clinical Impression/Diagnosis: Lightheadedness Accidental medication overdose Qualifiers: Encounter type: initial encounter Qualified Code(s): T50.901A - Poisoning by unspecified drugs, medicaments and biological substances, accidental ( unintentional), initial encounter Condition: Guarded - Admission Yes - Follow up/Referral - Patient Discharge Instructions - Post Discharge Activity
--- NOTE | 2019-04-16 22:00 | HP ---
CHIEF COMPLAINT: Stumble and fall PCP: Dr. Adkins HISTORY OF PRESENT ILLNESS: 81 year-old female with a PMH significant for HTN, HLD, Type II NIDDM, IBS, frequent falls, and depression/anxiety. Patient was in her usual state of health until about 2:30pm today when the patient was seen by her to stumble and fall while walking to her car. She fell on the grass. There was no LOC but patient did hit her head on the ground. reports patient took her evening dose of alprazolam 2mg shortly before she fell. In the ED patient was observed to be somnolent, slow to respond, mild weakness but without focal deficit. ER course was notable for: (1) CT head: no acute pathology (2) UA: 40-60 RBCs, 5-10 WBCs Recent Travel: No PAST MEDICAL HISTORY: Hypertension Hyperlipidemia Type II NIDDM IBS Depression/anxiety Frequent falls Carpal tunnel syndrome PAST SURGICAL HISTORY: Social History: lives with spouse Smoking: never Alcohol: no Drugs: no Family history: non-contributory Allergies No Known Allergies Allergy (Verified 04/16/19 15:10) HOME MEDICATIONS: Home Medications Medication Instructions Recorded Alprazolam 2 mg PO BID 02/07/17 Atorvastatin Ca [Lipitor] 40 mg PO HS 02/07/17 Meloxicam [Mobic (Nf) -] 15 mg PO HS 02/07/17 Metoprolol Succinate [Toprol XL -] 25 mg PO DAILY 02/07/17 metFORMIN HCL [Metformin ER 500 mg PO BID 02/07/17 Osmotic] REVIEW OF SYSTEMS: Unable to obtain from patient, cannot recall events PHYSICAL EXAMINATION Vital Signs - 24 hr 04/16/19 04/16/19 04/16/19 15:10 15:36 16:25 Temperature 97.4 F L Pulse Rate 78 Pulse Rate [ 73 Apical] Respiratory 17 16 Rate Blood Pressure 118/74 Blood Pressure 121/47 L [Left Arm] O2 Sat by Pulse 94 L 94 L 95 Oximetry (%) 04/16/19 17:05 Temperature Pulse Rate Pulse Rate [ 72 Apical] Respiratory 18 Rate Blood Pressure Blood Pressure 125/57 L [Left Arm] O2 Sat by Pulse 95 Oximetry (%) GENERAL: Awake, oriented to person and place (time: November 1959); confused ("I live with my father.") HEAD: Abrasions, mild ecchymosis to left upper face EYES: Pupils equal, round and reactive to light, extraocular movements intact, sclera anicteric, conjunctiva injected appearance LUNGS: Breath sounds equal, clear to auscultation bilaterally. No wheezes, and no crackles. No accessory muscle use. HEART: Regular rate and rhythm, normal S1 and S2 ABDOMEN: Soft, nontender, not distended MUSCULOSKELETAL: Normal range of motion at all joints. No bony deformities or tenderness. No CVA tenderness. UPPER EXTREMITIES: 2+ pulses, warm, well-perfused. No cyanosis. No clubbing. No peripheral edema. LOWER EXTREMITIES: 2+ pulses, warm, well-perfused. No calf tenderness. No peripheral edema. Healing scratches on right lower leg, small bruise right knee NEUROLOGICAL: Cranial nerves II-XII intact. Normal speech. Laboratory Results - last 24 hr 04/16/19 04/16/19 04/16/19 15:38 15:38 15:38 WBC 10.5 RBC 3.66 Hgb 11.7 Hct 34.3 MCV 93.8 MCH 32.0 MCHC 34.2 RDW 12.5 Plt Count 185 MPV 7.7 Absolute Neuts (auto) 8.0 Neutrophils % 75.8 Lymphocytes % 11.3 Monocytes % 7.7 Eosinophils % 5.0 H Basophils % 0.2 PT with INR INR Sodium 139 Potassium 4.2 Chloride 105 Carbon Dioxide 28 Anion Gap 6 L BUN 24.0 H Creatinine 0.7 Est GFR (CKD-EPI)AfAm 93.52 Est GFR (CKD-EPI)NonAf 80.69 Random Glucose 118 H Calcium 9.2 Total Bilirubin 0.4 AST 23 ALT 19 Alkaline Phosphatase 81 Creatine Kinase Cancelled Troponin I Cancelled Total Protein 6.5 Albumin 4.1 Triglycerides 226 H Cholesterol 143 Total LDL Cholesterol 40 HDL Cholesterol 57 Urine Color Urine Appearance Urine pH Urine Protein Urine Glucose (UA) Urine Ketones Urine Blood Urine Nitrite Urine Bilirubin Urine Urobilinogen Ur Leukocyte Esterase Blood Type Antibody Screen 04/16/19 04/16/19 04/16/19 15:38 15:38 15:38 WBC RBC Hgb Hct MCV MCH MCHC RDW Plt Count MPV Absolute Neuts (auto) Neutrophils % Lymphocytes % Monocytes % Eosinophils % Basophils % PT with INR 12.2 INR 1.09 Sodium Potassium Chloride Carbon Dioxide Anion Gap BUN Creatinine Est GFR (CKD-EPI)AfAm Est GFR (CKD-EPI)NonAf Random Glucose Calcium Total Bilirubin AST ALT Alkaline Phosphatase Creatine Kinase Troponin I < 0.03 Total Protein Albumin Triglycerides Cholesterol Total LDL Cholesterol HDL Cholesterol Urine Color Urine Appearance Urine pH Urine Protein Urine Glucose (UA) Urine Ketones Urine Blood Urine Nitrite Urine Bilirubin Urine Urobilinogen Ur Leukocyte Esterase Blood Type O POSITIVE Antibody Screen Negative 04/16/19 04/16/19 15:38 21:40 WBC RBC Hgb Hct MCV MCH MCHC RDW Plt Count MPV Absolute Neuts (auto) Neutrophils % Lymphocytes % Monocytes % Eosinophils % Basophils % PT with INR INR Sodium Potassium Chloride Carbon Dioxide Anion Gap BUN Creatinine Est GFR (CKD-EPI)AfAm Est GFR (CKD-EPI)NonAf Random Glucose Calcium Total Bilirubin AST ALT Alkaline Phosphatase Creatine Kinase 51 Troponin I Total Protein Albumin Triglycerides Cholesterol Total LDL Cholesterol HDL Cholesterol Urine Color Yellow Urine Appearance Slightly Urine pH 5.5 Urine Protein Trace Urine Glucose (UA) Negative Urine Ketones Negative Urine Blood 3+ H Urine Nitrite Negative Urine Bilirubin Negative Urine Urobilinogen 0.2 Ur Leukocyte Esterase Trace H Blood Type Antibody Screen ASSESSMENT/PLAN 81 year-old female with a PMH significant for HTN, HLD, Type II NIDDM, IBS, frequent falls, and depression/anxiety. Admitted following a mechanical fall following an accidental medication overdose. Mechanical fall Frequent falls --CT head: no acute pathology --repeat pending Accidental medication overdose --took extra dose of alprazolam 2mg close to morning dose of 2mg --neuro checks q2h --telelemtry and continuous pulse ox monitoring r/o dementia --son states he thinks patient has dementia but not diagnosed as far as he knows --will get records from Dr. Adkins --neuro consult Hypertension --BP stable --continue Toprol XL Hyperlipidemia --continue Lipitor Type II NIDDM --Novolog sliding scale coverage IBS --not on medication Depression/anxiety --will not stop alprazolam suddenly; will reduce dose to 1mg in am, hold for somnolence, lethargy, respiratory compromise FEN Fluids: PO intake adequate Electrolytes: replete as indicated Nutrition: low sodium, diabetic DVT prophylaxis: subq heparin Physical therapy Dispo: continues to require inpatient care. Full code. Visit type - Emergency Visit Emergency Visit: Yes ED Registration Date: 04/16/19 Care time: The patient presented to the Emergency Department on the above date and was hospitalized for further evaluation of their emergent condition. - New Patient This patient is new to me today: Yes Date on this admission: 04/17/19 - Critical Care Critical Care patient: No
[2019-04-16 22:45] LABS: CALCIUM OXALATE CRYSTALS FEW /hpf (NONE SEEN)
[2019-04-17 07:04] LABS: BASO % 0.1 % (0-2.0); HEMATOCRIT 34.2 % (32.4-45.2); HEMOGLOBIN 11.6 GM/dl (10.7-15.3); LYMPH % 6.3 % (8-40); MCH 31.4 pg (25.7-33.7); MEAN CELL VOLUME 92.2 fl (80-96); MEAN PLT VOLUME 7.8 fl (7.5-11.1); MONO % 5.5 % (3.8-10.2); NEUT % 87.1 % (42.8-82.8); PLATELET COUNT 169 K/MM3 (134-434); RBC 3.71 M/mm3 (3.60-5.2); RDW 11.9 % (11.6-15.6); WHITE BLOOD COUNT 8.9 K/mm3 (4.0-10.8)
[2019-04-17 07:23] LABS: ALBUMIN 3.8 g/dl (3.4-5.0); BILIRUBIN,TOTAL 0.5 mg/dl (0.2-1); CALCIUM 8.8 mg/dl (8.5-10); CREATININE 0.5 mg/dl (0.55-1.3); MAGNESIUM 1.3 mg/dL (1.8-2.4); POTASSIUM 4.1 mmol/L (3.5-5.1); TOT PROT 6.6 g/dl (6.4-8.2)
[2019-04-17] MEDS: INSULIN SLIDING SCALE (NOVOLOG) 1 VIAL SQ SCH ×4 (07:42→21:27)
[2019-04-17] MEDS ORDERED: MAGNESIUM SULF 50% (8.12 MEQ/2 ML-1 GM VIAL) IVPB ONE (08:01)
--- NOTE | 2019-04-17 08:02 | PN ---
Physical Exam: SUBJECTIVE: Patient seen and examined oob to chair. Feels "so so." OBJECTIVE: Vital Signs Period Temp Pulse Resp BP Sys/Mazariegos Pulse Ox Last 24 Hr 97.4 F-98.5 F 72-88 14-20 118-172/47-96 94-95 GENERAL: Awake, oriented to person and place (time: November 1959); confused ("I live with my father.") HEAD: Abrasions, mild ecchymosis to left upper face EYES: Pupils equal, round and reactive to light, extraocular movements intact, sclera anicteric, conjunctiva injected appearance LUNGS: Breath sounds equal, clear to auscultation bilaterally. No wheezes, and no crackles. No accessory muscle use. HEART: Regular rate and rhythm, normal S1 and S2 ABDOMEN: Soft, nontender, not distended MUSCULOSKELETAL: Normal range of motion at all joints. No bony deformities or tenderness. No CVA tenderness. UPPER EXTREMITIES: 2+ pulses, warm, well-perfused. No cyanosis. No clubbing. No peripheral edema. LOWER EXTREMITIES: 2+ pulses, warm, well-perfused. No calf tenderness. No peripheral edema. Healing scratches on right lower leg, small bruise right knee NEUROLOGICAL: Cranial nerves II-XII intact. Normal speech. Laboratory Results - last 24 hr 04/16/19 04/16/19 04/16/19 15:38 15:38 15:38 WBC 10.5 RBC 3.66 Hgb 11.7 Hct 34.3 MCV 93.8 MCH 32.0 MCHC 34.2 RDW 12.5 Plt Count 185 MPV 7.7 Absolute Neuts (auto) 8.0 Neutrophils % 75.8 Lymphocytes % 11.3 Monocytes % 7.7 Eosinophils % 5.0 H Basophils % 0.2 PT with INR INR Sodium 139 Potassium 4.2 Chloride 105 Carbon Dioxide 28 Anion Gap 6 L BUN 24.0 H Creatinine 0.7 Est GFR (CKD-EPI)AfAm 93.52 Est GFR (CKD-EPI)NonAf 80.69 Random Glucose 118 H Calcium 9.2 Magnesium Total Bilirubin 0.4 AST 23 ALT 19 Alkaline Phosphatase 81 Creatine Kinase Cancelled Troponin I Cancelled Total Protein 6.5 Albumin 4.1 Triglycerides 226 H Cholesterol 143 Total LDL Cholesterol 40 HDL Cholesterol 57 Urine Color Urine Appearance Urine pH Urine Protein Urine Glucose (UA) Urine Ketones Urine Blood Urine Nitrite Urine Bilirubin Urine Urobilinogen Ur Leukocyte Esterase Urine RBC Urine WBC Calcium Oxalate Crystal Urine Bacteria Blood Type Antibody Screen 04/16/19 04/16/19 04/16/19 15:38 15:38 15:38 WBC RBC Hgb Hct MCV MCH MCHC RDW Plt Count MPV Absolute Neuts (auto) Neutrophils % Lymphocytes % Monocytes % Eosinophils % Basophils % PT with INR 12.2 INR 1.09 Sodium Potassium Chloride Carbon Dioxide Anion Gap BUN Creatinine Est GFR (CKD-EPI)AfAm Est GFR (CKD-EPI)NonAf Random Glucose Calcium Magnesium Total Bilirubin AST ALT Alkaline Phosphatase Creatine Kinase Troponin I < 0.03 Total Protein Albumin Triglycerides Cholesterol Total LDL Cholesterol HDL Cholesterol Urine Color Urine Appearance Urine pH Urine Protein Urine Glucose (UA) Urine Ketones Urine Blood Urine Nitrite Urine Bilirubin Urine Urobilinogen Ur Leukocyte Esterase Urine RBC Urine WBC Calcium Oxalate Crystal Urine Bacteria Blood Type O POSITIVE Antibody Screen Negative 04/16/19 04/16/19 04/17/19 15:38 21:40 06:55 WBC 8.9 RBC 3.71 Hgb 11.6 Hct 34.2 MCV 92.2 MCH 31.4 MCHC 34.0 RDW 11.9 Plt Count 169 MPV 7.8 Absolute Neuts (auto) 7.7 Neutrophils % 87.1 H Lymphocytes % 6.3 L Monocytes % 5.5 Eosinophils % 1.0 Basophils % 0.1 PT with INR INR Sodium Potassium Chloride Carbon Dioxide Anion Gap BUN Creatinine Est GFR (CKD-EPI)AfAm Est GFR (CKD-EPI)NonAf Random Glucose Calcium Magnesium Total Bilirubin AST ALT Alkaline Phosphatase Creatine Kinase 51 Troponin I Total Protein Albumin Triglycerides Cholesterol Total LDL Cholesterol HDL Cholesterol Urine Color Yellow Urine Appearance Slightly Urine pH 5.5 Urine Protein Trace Urine Glucose (UA) Negative Urine Ketones Negative Urine Blood 3+ H Urine Nitrite Negative Urine Bilirubin Negative Urine Urobilinogen 0.2 Ur Leukocyte Esterase Trace H Urine RBC 40-60 Urine WBC 5-10 Calcium Oxalate Crystal Few Urine Bacteria Few Blood Type Antibody Screen 04/17/19 06:55 WBC RBC Hgb Hct MCV MCH MCHC RDW Plt Count MPV Absolute Neuts (auto) Neutrophils % Lymphocytes % Monocytes % Eosinophils % Basophils % PT with INR INR Sodium 137 Potassium 4.1 Chloride 107 Carbon Dioxide 25 Anion Gap 5 L BUN 15.0 Creatinine 0.5 L Est GFR (CKD-EPI)AfAm 104.46 Est GFR (CKD-EPI)NonAf 90.13 Random Glucose 165 H Calcium 8.8 Magnesium 1.3 L Total Bilirubin 0.5 AST 24 ALT 17 Alkaline Phosphatase 77 Creatine Kinase Troponin I Total Protein 6.6 Albumin 3.8 Triglycerides Cholesterol Total LDL Cholesterol HDL Cholesterol Urine Color Urine Appearance Urine pH Urine Protein Urine Glucose (UA) Urine Ketones Urine Blood Urine Nitrite Urine Bilirubin Urine Urobilinogen Ur Leukocyte Esterase Urine RBC Urine WBC Calcium Oxalate Crystal Urine Bacteria Blood Type Antibody Screen Active Medications Generic Name Dose Route Start Last Admin Trade Name Ozzy PRN Reason Stop Dose Admin Alprazolam 1 mg 04/17/19 10:00 Xanax PO BID VIKI Atorvastatin Calcium 40 mg 04/17/19 22:00 Lipitor - PO HS VIKI Heparin Sodium (Porcine) 5,000 unit 04/17/19 22:00 Heparin - SQ BID VIKI Insulin Aspart 1 vial 04/17/19 07:00 04/17/19 07:42 Novolog Vial Sliding Scale - SQ Not Given ACHS [facility] Protocol Magnesium Sulfate 2 gm 04/17/19 08:01 Magnesium Sulfate IVPB 04/17/19 08:02 ONCE ONE Metoprolol Succinate 25 mg 04/17/19 10:00 Toprol Xl - PO DAILY [facility] ASSESSMENT/PLAN: 81 year-old female with a PMH significant for HTN, HLD, Type II NIDDM, IBS, frequent falls, and depression/anxiety. Admitted following a mechanical fall following an accidental medication overdose. Mechanical fall Frequent falls --CT head: no acute pathology --repeat pending Accidental medication overdose --took extra dose of alprazolam 2mg close to morning dose of 2mg --neuro checks q2h --telelemtry and continuous pulse ox monitoring Hypertension --BP stable --continue Toprol XL Hyperlipidemia --continue Lipitor Type II NIDDM --Novolog sliding scale coverage IBS --not on medication Depression/anxiety --will not stop alprazolam suddenly; will reduce dose to 1mg BID, hold for somnolence, lethargy, respiratory compromise --discussed with Dr. Adkins who said chato Guerra just left his office expressing his concerns --Dr. Adkins agrees we discharge patient on 1mg BID FEN Fluids: PO intake adequate Electrolytes: replete as indicated Nutrition: low sodium, diabetic DVT prophylaxis: subq heparin Physical therapy Dispo: continues to require inpatient care. Full code. Son: Charlie Taylor [phone] (not a HCP); Leif Jackson [phone]; face to face conversatioin with son who expresses concern for patient's safety at home; feels mother takes a "concoction of medications" that he feels is leading to mental confusion and falls. is having eye surgery today. Will not be safe for patient to go home today. Need to discuss with how patient's medications are secured and dispensed at home. I STOP Search Search Terms: alexey mitchell, 1935 Search Date: 04/17/2019 09:58:39 AM The Drug Utilization Report below displays all of the controlled substance prescriptions, if any, that your patient has filled in the last twelve months. The information displayed on this report is compiled from pharmacy submissions to the Department, and accurately reflects the information as submitted by the pharmacies. This report was requested by: Erin Sawant | Reference #: [id number] Others' Prescriptions Patient Name: Alexey Mitchell Date: 1935 Address: [place] [address] Sex: Female Rx Written Rx Dispensed Drug Quantity Days Supply Prescriber Name 04/05/2019 04/08/2019 alprazolam 2 mg tablet 120 30 Elias Adkins C MD 10/16/2018 01/17/2019 tramadol hcl 50 mg tablet 90 30 Elias Adkins C MD 01/15/2019 01/17/2019 alprazolam 2 mg tablet 120 30 Elias Adkins C MD 11/01/2018 11/04/2018 alprazolam 2 mg tablet 120 30 Elias Adkins C MD 10/16/2018 10/17/2018 tramadol hcl 50 mg tablet 90 30 Elias Adkins C MD 09/10/2018 09/10/2018 tramadol-acetaminophen 37.5-325 mg tab 21 7 Gregg Marquis MD 08/29/2018 08/30/2018 alprazolam 2 mg tablet 120 30 Elias Adkins C MD 07/04/2018 07/06/2018 alprazolam 2 mg tablet 120 30 Elias Adkins C MD 05/02/2018 05/03/2018 alprazolam 2 mg tablet 120 30 Elias Adkins C MD Visit type - Emergency Visit Emergency Visit: Yes ED Registration Date: 04/16/19 Care time: The patient presented to the Emergency Department on the above date and was hospitalized for further evaluation of their emergent condition. - New Patient This patient is new to me today: No - Critical Care Critical Care patient: No
[2019-04-17] MEDS ORDERED: MAGNESIUM SULFATE IN WATER 2 GM/50 ML IVPB IVPB ONE (08:30)
[2019-04-17] MEDS: ALPRAZolam 1 MG TABLET PO SCH ×2 (09:44→21:27)
[2019-04-17] MEDS: metoPROLOL SUCCINATE 25 MG TAB.SR.24H (FP) PO SCH (09:44)
[2019-04-17] MEDS ORDERED: ONDANSETRON 4 MG/2 ML VIAL IVPUSH PRN (09:55)
--- NOTE | 2019-04-17 10:39 | EKG ---
Test Reason : Blood Pressure : / mmHG Vent. Rate : 076 BPM Atrial Rate : 076 BPM P-R Int : 170 ms QRS Dur : 080 ms QT Int : 408 ms P-R-T Axes : 053 -13 057 degrees QTc Int : 459 ms NORMAL SINUS RHYTHM POSSIBLE LEFT ATRIAL ENLARGEMENT INFERIOR INFARCT (CITED ON OR BEFORE 07-FEB-2017) ANTERIOR INFARCT (CITED ON OR BEFORE 07-FEB-2017) ABNORMAL ECG WHEN COMPARED WITH ECG OF 07-FEB-2017 12:57, NO SIGNIFICANT CHANGE WAS FOUND Confirmed by DANIELA HOFFMANN, ALISSON ([id number]) on 04/17/2019 10:39:03 AM Referred By: DR CURRAN Confirmed By:ALISSON SUAREZ MD
[2019-04-17 13:09] LABS: COCAINE, UR NEGATIVE ng/ml (CUTOFF=300); METHADONE, UR NEGATIVE ng/ml (CUTOFF=300); OPIATES, URI NEGATIVE ng/ml (CUTOFF=300); PHENCYCLIDINE,URINE NEGATIVE ng/ml (CUTOFF=25); URINE AMPHETAMINES NEGATIVE ng/ml (CUTOFF=500); URINE BARBITURATES NEGATIVE ng/ml (CUTOFF=200)
[2019-04-17 13:21] LABS: URINE BENZODIAZEPINES POSITIVE ng/ml (CUTOFF=200)
[2019-04-17] MEDS: HEPARIN NA (PORCINE) 5,000 UNITS/ML 1ML VIAL SQ SCH (21:26)
[2019-04-17] MEDS ORDERED: ATORVASTATIN CA 40 MG TABLET (FP) PO SCH (22:00)
--- NOTE | 2019-04-18 04:25 | DS ---
Physical Exam: SUBJECTIVE: Patient seen and examined OBJECTIVE: Vital Signs Period Temp Pulse Resp BP Sys/Mazariegos Pulse Ox Last 24 Hr 97.6 F-98.6 F 80-88 18-20 148-189/68-84 93-94 PHYSICAL EXAM GENERAL: The patient is awake, alert, and fully oriented, in no acute distress. HEAD: Normal with no signs of trauma. EYES: PERRL, extraocular movements intact, sclera anicteric, conjunctiva clear. ENT: Ears normal, nares patent, oropharynx clear without exudates, moist mucous membranes. NECK: Trachea midline, full range of motion, supple. LUNGS: Breath sounds equal, clear to auscultation bilaterally, no wheezes, no crackles, no accessory muscle use. HEART: Regular rate and rhythm, S1, S2 without murmur, rub or gallop. ABDOMEN: Soft, nontender, nondistended, normoactive bowel sounds, no guarding, no rebound, no hepatosplenomegaly, no masses. EXTREMITIES: 2+ pulses, warm, well-perfused, no edema. NEUROLOGICAL: Cranial nerves II through XII grossly intact. Normal speech, gait not observed. PSYCH: Normal mood, normal affect. SKIN: Warm, dry, normal turgor, no rashes or lesions noted. LABS Laboratory Results - last 24 hr 04/17/19 04/17/19 04/17/19 06:15 06:55 06:55 WBC 8.9 RBC 3.71 Hgb 11.6 Hct 34.2 MCV 92.2 MCH 31.4 MCHC 34.0 RDW 11.9 Plt Count 169 MPV 7.8 Absolute Neuts (auto) 7.7 Neutrophils % 87.1 H Lymphocytes % 6.3 L Monocytes % 5.5 Eosinophils % 1.0 Basophils % 0.1 Sodium 137 Potassium 4.1 Chloride 107 Carbon Dioxide 25 Anion Gap 5 L BUN 15.0 Creatinine 0.5 L Est GFR (CKD-EPI)AfAm 104.46 Est GFR (CKD-EPI)NonAf 90.13 POC Glucometer 156 Random Glucose 165 H Calcium 8.8 Magnesium 1.3 L Total Bilirubin 0.5 AST 24 ALT 17 Alkaline Phosphatase 77 Total Protein 6.6 Albumin 3.8 Opiates Screen Methadone Screen Barbiturate Screen Phencyclidine Screen Ur Amphetamines Screen MDMA (Ecstasy) Screen Benzodiazepines Screen Cocaine Screen U Marijuana (THC) Screen 04/17/19 04/17/19 04/17/19 11:15 11:23 17:05 WBC RBC Hgb Hct MCV MCH MCHC RDW Plt Count MPV Absolute Neuts (auto) Neutrophils % Lymphocytes % Monocytes % Eosinophils % Basophils % Sodium Potassium Chloride Carbon Dioxide Anion Gap BUN Creatinine Est GFR (CKD-EPI)AfAm Est GFR (CKD-EPI)NonAf POC Glucometer 150 148 Random Glucose Calcium Magnesium Total Bilirubin AST ALT Alkaline Phosphatase Total Protein Albumin Opiates Screen Negative Methadone Screen Negative Barbiturate Screen Negative Phencyclidine Screen Negative Ur Amphetamines Screen Negative MDMA (Ecstasy) Screen Negative Benzodiazepines Screen Positive A* Cocaine Screen Negative U Marijuana (THC) Screen Negative 04/17/19 21:22 WBC RBC Hgb Hct MCV MCH MCHC RDW Plt Count MPV Absolute Neuts (auto) Neutrophils % Lymphocytes % Monocytes % Eosinophils % Basophils % Sodium Potassium Chloride Carbon Dioxide Anion Gap BUN Creatinine Est GFR (CKD-EPI)AfAm Est GFR (CKD-EPI)NonAf POC Glucometer 118 Random Glucose Calcium Magnesium Total Bilirubin AST ALT Alkaline Phosphatase Total Protein Albumin Opiates Screen Methadone Screen Barbiturate Screen Phencyclidine Screen Ur Amphetamines Screen MDMA (Ecstasy) Screen Benzodiazepines Screen Cocaine Screen U Marijuana (THC) Screen HOSPITAL COURSE: Date of Admission:04/16/19 Date of Discharge: 04/18/19 Toxic encephalopathy due to accidental ingestion of alprazolam Minutes to complete discharge: 35 Discharge Summary Problems reviewed: Yes Reason For Visit: ACCIDENTAL DRUG OVERDOSE Current Active Problems Accidental medication overdose (Acute) Lightheadedness (Acute) Condition: Improved - Instructions Diet, Activity, Other Instructions: It is important that you LOWER YOUR DOSE OF XANAX. Dr. Adkins wants you to take no more than 1mg twice a day. You need to cut the pills you have at home in half. We are sending a pill cutter home with you. Please follow up with Dr. Adkins within one week of your discharge. Referrals: Elias Adkins MD [Staff Physician] - Disposition: HOME - Home Medications Comprehensive Discharge Medication List: Ambulatory Orders Alprazolam 2 mg PO BID 02/07/17 Atorvastatin Ca [Lipitor] 40 mg PO HS 02/07/17 Meloxicam [Mobic (Nf) -] 15 mg PO HS 02/07/17 Metoprolol Succinate [Toprol XL -] 25 mg PO DAILY 02/07/17 metFORMIN HCL [Metformin ER Osmotic] 500 mg PO BID 02/07/17 This patient is new to me today: No Emergency Visit: Yes ED Registration Date: 04/16/19 Care time: The patient presented to the Emergency Department on the above date and was hospitalized for further evaluation of their emergent condition. Critical Care patient: No
[2019-04-18] MEDS: INSULIN SLIDING SCALE (NOVOLOG) 1 VIAL SQ SCH (06:33)
[2019-04-18 09:57] VITALS: BP 150/90; PULSE 85; TEMP 99.3
[2019-04-18] MEDS: metoPROLOL SUCCINATE 25 MG TAB.SR.24H (FP) PO SCH (10:22)
[2019-04-18] MEDS: HEPARIN NA (PORCINE) 5,000 UNITS/ML 1ML VIAL SQ SCH (10:22)
[2019-04-18] MEDS: ALPRAZolam 1 MG TABLET PO SCH (10:22)
== END 2019-04-18 11:42 | disposition home or self-care (01) | DRG 917 ==
LOC: FER 15:08 → FM/S 21:50
PROVIDERS: ADMIT Internal Medicine; ATTEND Nurse Practitioner Acute Care
DX: T42.4X1A Poisoning by benzodiazepines, accidental (unintentional), initial encounter (principal); G92 Toxic encephalopathy; I10 Essential (primary) hypertension; E78.5 Hyperlipidemia, unspecified; E11.9 Type 2 diabetes mellitus without complications; K58.9 Irritable bowel syndrome, unspecified; R26.81 Unsteadiness on feet; F41.8 Other specified anxiety disorders; R29.6 Repeated falls; G56.00 Carpal tunnel syndrome, unspecified upper limb; W18.30XA Fall on same level, unspecified, initial encounter; Y92.098 Other place in other non-institutional residence as the place of occurrence of the external cause
CPT/HCPCS: 36415; 70450-TC; 71045-TC-FY; 80053; 80307; 81003; 81015; 82465; 82550; 82962; 83718; 83721; 83735; 84478; 84484; 85025; 85610; 86850; 86900; 86901; 93005; 97116-GP; 97162-GP; 99284-25; J1644; J7030

== ENCOUNTER 2019-05-13 16:17 | Emergency (ER) | payer OTHER, BC ==
--- NOTE | 2019-05-13 16:24 | PDOC ---
History of Present Illness - History of Present Illness Initial Comments: 05/13/19 16:25 83 year old woman with a history of HTN, HLD, Type II NIDDM, IBS, frequent falls, and depression/anxiety who presents with intermittent stabbing mid abdominal pain that is 6-7/10 at peak and dull after resolution. The pain is worse with movement. The patient denies any vomiting, nausea, diarrhea, constipation or any other symptoms. ROS GENERAL/CONSTITUTIONAL: No fever or chills. No weakness. CARDIOVASCULAR: No chest pain or shortness of breath RESPIRATORY: No cough, wheezing, or hemoptysis. GASTROINTESTINAL: No nausea, vomiting, diarrhea or constipation. GENITOURINARY: No dysuria, frequency, or change in urination. MUSCULOSKELETAL: No joint or muscle swelling or pain. No neck or back pain. SKIN: No rash NEUROLOGIC: No headache, vertigo, loss of consciousness, or change in strength/ sensation. PE GENERAL: Awake, alert, and fully oriented, in no acute distress HEAD: No signs of trauma, normocephalic, atraumatic EYES: EOMI, sclera anicteric, conjunctiva clear + purulent drainage from the R eye ENT: oropharynx clear without exudates. Moist mucosa NECK: Normal ROM, supple LUNGS: No distress, speaks full sentences, clear to auscultation bilaterally HEART: Regular rate and rhythm, normal S1 and S2, no murmurs, rubs or gallops, peripheral pulses normal and equal bilaterally. ABDOMEN: Soft, nontender, No guarding, no rebound. No masses EXTREMITIES : Normal inspection, Normal range of motion, no edema. No clubbing or cyanosis. NEUROLOGICAL: Cranial nerves II through XII grossly intact. Normal speech, no focal sensorimotor deficits MDM DDX including but not limited to: ED Course: Michaela Delgado, PGY2 Emergency Medicine <Michaela Delgado - Last Filed: 05/13/19 16:38> <Cira Morris - Last Filed: 05/13/19 22:24> - General Chief Complaint: Pain Stated Complaint: STOMACH PAIN Time Seen by Provider: 05/13/19 16:24 Past History - Past Medical History COPD: No Diabetes: Yes GI Disorders: Yes Hypercholesterolemia: Yes Psychiatric Problems: Yes - Psycho Social/Smoking Cessation Hx Smoking History: Never smoked Hx Alcohol Use: No Drug/Substance Use Hx: No <Michaela Delgado - Last Filed: 05/13/19 16:38> <Cira Morris - Last Filed: 05/13/19 22:24> - Past Medical History Allergies/Adverse Reactions: Allergies Allergy/AdvReac Type Severity Reaction Status Date / Time No Known Allergies Allergy Verified 05/13/19 16:19 Home Medications: Ambulatory Orders Atorvastatin Ca [Lipitor] 40 mg PO HS 02/07/17 metFORMIN HCL [Metformin ER Osmotic] 500 mg PO BID 02/07/17 Alprazolam [Xanax] 1 mg PO BID #30 tablet MDD 2 04/18/19 Metoprolol Tartrate [Lopressor -] 25 mg PO BID 05/13/19 Nitrofurantoin Monohyd/M-Cryst [Macrobid -] 100 mg PO BID #14 capsule 05/13/19 Sertraline HCl [Zoloft -] 50 mg PO BID 05/13/19 Tramadol HCl [Ultram] 25 mg PO BID 05/13/19 *Physical Exam - Vital Signs Last Vital Signs Temp Pulse Resp BP Pulse Ox 98 F 81 19 141/82 96 05/13/19 16:18 05/13/19 16:18 05/13/19 16:18 05/13/19 16:18 05/13/19 16:18 <Cira Morris - Last Filed: 05/13/19 22:24> ED Treatment Course - LABORATORY CBC & Chemistry Diagram: 05/13/19 16:50 05/13/19 16:50 - ADDITIONAL ORDERS Additional order review: Laboratory Results 05/13/19 05/13/19 05/13/19 19:40 17:10 16:50 Sodium Potassium Chloride Carbon Dioxide Anion Gap BUN Creatinine Est GFR (CKD-EPI)AfAm Est GFR (CKD-EPI)NonAf Random Glucose Lactic Acid 1.3 Calcium Total Bilirubin AST ALT Alkaline Phosphatase Total Protein Albumin Lipase 152 Urine Color Dark Urine Appearance Cloudy Urine pH 5.5 Urine Protein 2+ H Urine Glucose (UA) Negative Urine Ketones Negative Urine Blood 3+ H Urine Nitrite Negative Urine Bilirubin 1+ H Urine Urobilinogen 0.2 Ur Leukocyte Esterase Trace H Urine RBC >100 Urine WBC 10-20 Ur Transition Epith Cell Moderate Urine Bacteria Many 05/13/19 05/13/19 16:50 16:39 Sodium 140 Potassium 4.2 Chloride 105 Carbon Dioxide 24 Anion Gap 11 BUN 17.0 Creatinine 0.7 Est GFR (CKD-EPI)AfAm 93.52 Est GFR (CKD-EPI)NonAf 80.69 Random Glucose 109 H Lactic Acid Calcium 9.5 Total Bilirubin 0.8 AST 17 ALT 11 L Alkaline Phosphatase 71 Total Protein 7.0 Albumin 3.6 Lipase Urine Color Cancelled Urine Appearance Cancelled Urine pH Cancelled Urine Protein Cancelled Urine Glucose (UA) Cancelled Urine Ketones Cancelled Urine Blood Cancelled Urine Nitrite Cancelled Urine Bilirubin Cancelled Urine Urobilinogen Cancelled Ur Leukocyte Esterase Cancelled Urine RBC Urine WBC Ur Transition Epith Cell Urine Bacteria 05/13/19 16:50 RBC 3.66 MCV 92.9 MCHC 33.9 RDW 11.9 MPV 8.2 Neutrophils % 75.2 Lymphocytes % 13.1 Monocytes % 8.1 Eosinophils % 3.4 Basophils % 0.2 - Medications Given in the ED: ED Medications Discontinued Medications Generic Name Dose Route Start Last Admin Trade Name Freq PRN Reason Stop Dose Admin Erythromycin 1 applic 05/13/19 17:04 05/13/19 17:55 Erythromycin 0.5% Eye Ointment OD 05/13/19 17:05 1 applic ONCE ONE Administration <Cira Morris - Last Filed: 05/13/19 22:24> Discharge <Michaela Delgado - Last Filed: 05/13/19 16:38> - Discharge Information Problems reviewed: Yes <Cira Morris - Last Filed: 05/13/19 22:24> - Discharge Information Clinical Impression/Diagnosis: UTI (urinary tract infection) Qualifiers: Urinary tract infection type: acute cystitis Hematuria presence: without hematuria Qualified Code(s): N30.00 - Acute cystitis without hematuria Condition: Stable Disposition: HOME - Additional Discharge Information Prescriptions: Nitrofurantoin Monohyd/M-Cryst [Macrobid -] 100 mg PO BID #14 capsule - Follow up/Referral Referrals: Elias Adkins MD [Primary Care Provider] - 3 days - Patient Discharge Instructions Patient Printed Discharge Instructions: DI for Urinary Tract Infection (UTI) Additional Instructions: Drink plenty of water Macrobid 100 mg twice a day for 1 week Erythromycin ointment to right eye 3 X a day for 1 week Call 's office in a.m. to arrange follow-up within the next 2 to 3 days Continue other medications as prescribed Return to ER if you have worsening pain or develop fever/vomiting - Post Discharge Activity
[2019-05-13 16:31] VITALS: BP 141/82; PULSE 81; TEMP 98; BMI 19.3
--- NOTE | 2019-05-13 16:49 | PDOC ---
Attending Attestation - Resident Resident Name: Michaela Delgado - ED Attending Attestation I have performed the following: I have examined & evaluated the patient, The case was reviewed & discussed with the resident, I agree w/resident's findings & plan, Exceptions are as noted - HPI HPI: 05/13/19 17:54 83yo female with hx of htn and hld presents for eval of freq falls and abd pain. Pt states sharp mid abd/periumbilical pain x days. Denies assoc n/v/d. States last bowel movement was 3-4 days ago. States passing gas. Denies assoc with food intake. Per the son, pt has been eating less. States she falls often - last fall was yesterday. Pt denies abd pain at this time, but states the pain is colicky. Pt denies abd distension. Pt with an abrasion to the bridge of her nose. Pt also with conjunctivitis with purulent drainage to the R eye. Pt denies f/c. No davis. No neck pain. No cp/sob. No dysuria. Pt does sometimes walk with a cane, but the son feels she needs a walker. Son is also concerned for polypharmacy and the tramadol affecting her. Pt states she has been taking tramadol for her abd pain for the last few days. Pt denies all other complaints. - Physicial Exam PE: 05/13/19 18:03 Gen: awake, alert to person and place, poor historian to recent events heent: mmm, posterior pharynx clear, conjunctivitis to R eye with purulent drainage, abrasion to the bridge of the nose neck: supple, no midline ttp, no stepoffs or deformities heart: +s1s2 reg lungs: cta b/l abd: soft, nt/nd +bs ext: no c/c/e neuro: cn ii- xii grossly intact, no focal deficits, muscle strength 5/5 UE and LE, sensation intact - Medical Decision Making 05/13/19 18:06 a/p: 83yo female with freq falls and abd pain -will send labs, ua -will send for ct abd/pelvis -will give ivf hydration -will monitor and reassess 05/13/19 18:09 h/h stable wbc not elevated cr stable pending ua and head ct, abd ct head ct given pt falls freq 05/13/19 18:56 son updated on labs pending ua and cts 05/13/19 19:08 pt signed out pending ct imaging and ua currently drinking po contrast Heart Score/ECG Review - ECG Intrepretation Comment:: 05/13/19 18:06 sinus at 86, L axis, q waves inferiorly and septally which are age indeterminate , no acute st/t wave findings
[2019-05-13] MEDS ORDERED: ERYTHROMYCIN 0.5% OPHTHALMIC OINTMENT 3.5 GM TUBE OD ONE (17:04)
[2019-05-13 17:12] LABS: BASO % 0.2 % (0-2.0); EOS % 3.4 % (0-4.5); HEMOGLOBIN 11.5 GM/dl (10.7-15.3); LYMPH % 13.1 % (8-40); MCH 31.5 pg (25.7-33.7); MCHC 33.9 g/dl (32.0-36.0); MEAN CELL VOLUME 92.9 fl (80-96); MEAN PLT VOLUME 8.2 fl (7.5-11.1); MONO % 8.1 % (3.8-10.2); NEUT % 75.2 % (42.8-82.8); PLATELET COUNT 196 K/MM3 (134-434); RBC 3.66 M/mm3 (3.60-5.2); RDW 11.9 % (11.6-15.6); WHITE BLOOD COUNT 6.8 K/mm3 (4.0-10.8)
[2019-05-13 17:16] LABS: ALBUMIN 3.6 g/dl (3.4-5.0); BILIRUBIN,TOTAL 0.8 mg/dl (0.2-1); CALCIUM 9.5 mg/dl (8.5-10); CREATININE 0.7 mg/dl (0.55-1.3); POTASSIUM 4.2 mmol/L (3.5-5.1)
[2019-05-13] MEDS ORDERED: ERYTHROMYCIN 0.5% OPHTHALMIC OINTMENT 3.5 GM TUBE ONE (17:40)
[2019-05-13 21:02] LABS: EPITHELIAL CELLS MODERATE /hpf
[2019-05-13] MEDS ORDERED: NITROFURANTOIN MACROCRYSTAL 50 MG CAPSULE (FP) ONE (22:19)
--- NOTE | 2019-05-13 22:25 | PDOC ---
*Physical Exam - Vital Signs Last Vital Signs Temp Pulse Resp BP Pulse Ox 98 F 81 19 141/82 96 05/13/19 16:18 05/13/19 16:18 05/13/19 16:18 05/13/19 16:18 05/13/19 16:18 ED Treatment Course - LABORATORY CBC & Chemistry Diagram: 05/13/19 16:50 05/13/19 16:50 - ADDITIONAL ORDERS Additional order review: Laboratory Results 05/13/19 05/13/19 05/13/19 19:40 17:10 16:50 Sodium Potassium Chloride Carbon Dioxide Anion Gap BUN Creatinine Est GFR (CKD-EPI)AfAm Est GFR (CKD-EPI)NonAf Random Glucose Lactic Acid 1.3 Calcium Total Bilirubin AST ALT Alkaline Phosphatase Total Protein Albumin Lipase 152 Urine Color Dark Urine Appearance Cloudy Urine pH 5.5 Urine Protein 2+ H Urine Glucose (UA) Negative Urine Ketones Negative Urine Blood 3+ H Urine Nitrite Negative Urine Bilirubin 1+ H Urine Urobilinogen 0.2 Ur Leukocyte Esterase Trace H Urine RBC >100 Urine WBC 10-20 Ur Transition Epith Cell Moderate Urine Bacteria Many 05/13/19 05/13/19 16:50 16:39 Sodium 140 Potassium 4.2 Chloride 105 Carbon Dioxide 24 Anion Gap 11 BUN 17.0 Creatinine 0.7 Est GFR (CKD-EPI)AfAm 93.52 Est GFR (CKD-EPI)NonAf 80.69 Random Glucose 109 H Lactic Acid Calcium 9.5 Total Bilirubin 0.8 AST 17 ALT 11 L Alkaline Phosphatase 71 Total Protein 7.0 Albumin 3.6 Lipase Urine Color Cancelled Urine Appearance Cancelled Urine pH Cancelled Urine Protein Cancelled Urine Glucose (UA) Cancelled Urine Ketones Cancelled Urine Blood Cancelled Urine Nitrite Cancelled Urine Bilirubin Cancelled Urine Urobilinogen Cancelled Ur Leukocyte Esterase Cancelled Urine RBC Urine WBC Ur Transition Epith Cell Urine Bacteria 05/13/19 16:50 RBC 3.66 MCV 92.9 MCHC 33.9 RDW 11.9 MPV 8.2 Neutrophils % 75.2 Lymphocytes % 13.1 Monocytes % 8.1 Eosinophils % 3.4 Basophils % 0.2 - Medications Given in the ED: ED Medications Discontinued Medications Generic Name Dose Route Start Last Admin Trade Name Freq PRN Reason Stop Dose Admin Erythromycin 1 applic 05/13/19 17:04 05/13/19 17:55 Erythromycin 0.5% Eye Ointment OD 05/13/19 17:05 1 applic ONCE ONE Administration ED Progress Note - Progress Note Progress Note: Care of this patient received from Dr. Liu. Noncontrast head CT and CT of the abdomen and pelvis with contrast performed: Interpretation by Dr. Ribeiro of the radiology staff reveals no CT evidence of acute intracranial pathology No definite CT findings of acute pathology involving the abdomen or pelvis. There are focal lucencies along the L2 and L3 vertebral endplates with a 1.2 cm rim-enhancing focus along the left lateral border of L3., Degenerative versus infectious etiology possible. Patient examined and question regarding lower back pain. Patient denied any\ abdominal/pelvic pain at this point. She has no localized tenderness of the lower back. She is afebrile and has no elevation white blood cell count. Only significant abnormality on laboratory evaluation is urinalysis with greater than 100 RBC per high-power field, 10-20 WBC per high-power field, moderate epithelial cells and many bacteria. Urine sent for culture and sensitivity. Because of the patient's history of intermittent abdominal pain and urinalysis consistent with infected urine, patient will be started empirically on antibiotics for urinary tract infection: Macrodantin 100 mg given here in the emergency room and prescription for Macrobid twice daily for 1 week sent to her pharmacy. Patient should follow-up with her PMD, within the next few days. She should return to the emergency room immediately if she has worsening abdominal/pelvic/back pain. Also, she should return if she has fever/chills/ vomiting. She will be contacted if results of urine culture and sensitivity require change in antibiotic The patient and her son understand the plan and agreed to it. Discharge - Discharge Information Problems reviewed: Yes Clinical Impression/Diagnosis: UTI (urinary tract infection) Qualifiers: Urinary tract infection type: acute cystitis Hematuria presence: without hematuria Qualified Code(s): N30.00 - Acute cystitis without hematuria Acute conjunctivitis of right eye Qualifiers: Acute conjunctivitis type: bacterial Qualified Code(s): H10.31 - Unspecified acute conjunctivitis, right eye Condition: Stable Disposition: HOME - Additional Discharge Information Prescriptions: Nitrofurantoin Monohyd/M-Cryst [Macrobid -] 100 mg PO BID #14 capsule - Follow up/Referral Referrals: Elias Adkins MD [Primary Care Provider] - 3 days - Patient Discharge Instructions Patient Printed Discharge Instructions: DI for Conjunctivitis, DI for Urinary Tract Infection (UTI) Additional Instructions: Drink plenty of water Macrobid 100 mg twice a day for 1 week Erythromycin ointment to right eye 3 X a day for 1 week Call 's office in a.m. to arrange follow-up within the next 2 to 3 days Continue other medications as prescribed Return to ER if you have worsening pain or develop fever/vomiting - Post Discharge Activity
[2019-05-13] MEDS ORDERED: NITROFURANTOIN MACROCRYSTAL 50 MG CAPSULE (FP) PO SCH (22:30)
--- NOTE | 2019-05-14 11:19 | EKG ---
Test Reason : Blood Pressure : / mmHG Vent. Rate : 086 BPM Atrial Rate : 086 BPM P-R Int : 160 ms QRS Dur : 076 ms QT Int : 372 ms P-R-T Axes : 049 -30 064 degrees QTc Int : 445 ms NORMAL SINUS RHYTHM LEFT AXIS DEVIATION SEPTAL INFARCT (CITED ON OR BEFORE 07-FEB-2017) INFERIOR INFARCT (CITED ON OR BEFORE 07-FEB-2017) ABNORMAL ECG Confirmed by MD Damian, Demertio ([id number]) on 05/14/2019 11:19:27 AM Referred By: Confirmed By:Demetrio Salgado MD
== END 2019-05-13 22:34 | disposition home or self-care (01) ==
LOC: FER 16:17
DX: N39.0 Urinary tract infection, site not specified (principal); E11.9 Type 2 diabetes mellitus without complications; K92.9 Disease of digestive system, unspecified; E78.00 Pure hypercholesterolemia, unspecified; F99 Mental disorder, not otherwise specified; I10 Essential (primary) hypertension; E78.5 Hyperlipidemia, unspecified; K58.9 Irritable bowel syndrome, unspecified; Z91.81 History of falling; F41.8 Other specified anxiety disorders
CPT/HCPCS: 36415; 70450-TC; 74177-TC; 80053; 81003; 81015; 83605; 83690; 85025; 87086; 87186; 93005; 99283-25; Q9967

== ENCOUNTER 2020-02-25 02:39 | Emergency (ER) | payer OTHER, BC ==
[2020-02-25 02:54] VITALS: BP 137/74; PULSE 95; TEMP 97.7; BMI 19.5
[2020-02-25] MEDS ORDERED: DIPHTH,PERTUSS(ACELL),TET 0.5 ML DISP.SYRIN IM ONE ×2 (02:55→02:56)
--- NOTE | 2020-02-25 02:58 | PDOC ---
History of Present Illness - General Chief Complaint: Injury Stated Complaint: OUT WALKING SLIPPED AND FELL,LACERATION TO HEAD Time Seen by Provider: 02/25/20 02:43 History Source: Patient, Spouse Exam Limitations: Dementia - History of Present Illness Initial Comments: 02/25/20 02:52 This is a 84-year-old female who comes in with her . Patient is demented and was apparently confused and went out walking when she fell. The police found her and brought her back home to to the and called and EMS to bring her to the ED. Patient arrived with EMS in the ED. History is by patient's as per patient is unable to give history secondary to her dementia. did not see what happened but patient did say she fell while walking outside. Patient has a small laceration on her left lutheran area Allergies: as per nursing notes Past Medical History: none Social history: Lives with family. No smoking. No alcohol. No illicit drugs. Surgical history: None General: No fevers or chills, no weakness, no weight loss HEENT: No change in vision. No sore throat,. No ear pain, laceration left lutheran CardioVascular: no chest discomfort. No shortness of breath Respiratory:No cough, or wheezing. Gastrointestinal: no nausea, vomiting, diarrhea or constipation, No rectal bleeding Genitourinary: No dysuria, hematuria, or frequency Musculoskeletal: No joint or muscle pain or swelling Neurologic: No headache, vertigo, dizziness or loss of consciousness Psychiatric: nor depression Skin: No rashes or easy bruising Endocrine: no increased thirst or abnormal weight change Allergic: no skin or latex allergy All other systems reviewed and normal Exam: General: Well-nourished well-developed individual, no acute distress HEENT: Throat: Normal, tonsils normal, no erythema or exudate Neck: Supple, no meningeal signs, no lymphadenopathy Left lutheran area: There is a superficial laceration approximately one half of a centimeter in length. There is no active bleeding at this time there is no bony tenderness of the underlying structures Eyes::Pupils equal reactive and round, extraocular motion intact Chest: Nontender to palpation Cardiac: S1-S2 normal, regular rate and rhythm, no murmurs rubs or gallops Respiratory: Lungs clear to auscultation bilateral Abdomen: Soft, nondistended, normal bowel sounds, there is no tenderness on p alpation diffusely Extremities: Warm, dry, no cyanosis, clubbing, or edema, small abrasions bilateral anterior knees without tenderness, swelling, or ecchymosis. Skin: No rashes Neuro: Alert and oriented x1, CN II - XII intact, nonfocal exam with normal strength, normal sensation, normal reflexes, Psych: Normal mood and affect Procedure note laceration repair laceration was cleaned with peroxide and closed with Dermabond patient tolerated well Assessment and plan. Patient had a head CT given her age which was read as no acute pathology and patient was discharged home with her . Past History - Medical History Allergies/Adverse Reactions: Allergies Allergy/AdvReac Type Severity Reaction Status Date / Time No Known Allergies Allergy Verified 02/25/20 02:43 Home Medications: Ambulatory Orders Atorvastatin Ca [Lipitor] 40 mg PO HS 02/07/17 metFORMIN HCL [Metformin ER Osmotic] 500 mg PO BID 02/07/17 Metoprolol Tartrate [Lopressor -] 25 mg PO BID 05/13/19 Sertraline HCl [Zoloft -] 50 mg PO BID 05/13/19 Tramadol HCl [Ultram] 25 mg PO BID 05/13/19 COPD: No Diabetes: Yes GI Disorders: Yes HTN: Yes Hypercholesterolemia: Yes Psychiatric Problems: Yes Other medical history: ANXIETY/DEPRESSION/DEMENTIA - Immunization History Immunization Up to Date: No - Psycho-Social/Smoking History Smoking History: Never smoked Discharge - Discharge Information Problems reviewed: Yes Clinical Impression/Diagnosis: Facial laceration Qualifiers: Encounter type: initial encounter Qualified Code(s): S01.81XA - Laceration without foreign body of other part of head, initial encounter Condition: Stable Disposition: HOME - Admission No - Follow up/Referral Referrals: Elias Adkins MD [Primary Care Provider] - - Patient Discharge Instructions Patient Printed Discharge Instructions: DI for Laceration Repair With Dermabond Additional Instructions: For the pain take Tylenol 1000 mg as often this 3-4 times a day if needed. Someone to check on you once tonight during the night. You should be arousable to their normal level of arousability for that time of the night. If you have been vomiting, had a seizure, or you are unable to be aroused or there is a change in your mental status call 911 go back to the nearest emergency department. Followup with your primary care doctor Return to the emergency department immediately with ANY new, persistent or worsening symptoms. Continue any medications as previously prescribed by your physician. You should follow up with your primary doctor as soon as possible regarding today's emergency department visit. . Please make sure your doctor reviews the results of your emergency evaluation. Thank you for coming to the Emergency Department today for your care. It was a pleasure to see you today. Please note that your evaluation is INCOMPLETE until you follow-up with your doctor. - Post Discharge Activity
== END 2020-02-25 04:58 | disposition home or self-care (01) ==
LOC: FER 02:39
PROC: 3E0234Z Introduction of Serum, Toxoid and Vaccine into Muscle, Percutaneous Approach (ICD-10-PCS; principal; 2020-02-25)
DX: S01.81XA Laceration without foreign body of other part of head, initial encounter (principal)
CPT/HCPCS: 70450-TC; 90715; 99284-25

== ENCOUNTER 2020-05-31 09:35 | Inpatient (IN) | payer OTHER, BC ==
[2020-05-31 11:18] LABS: BASO % 0.4 % (0-2.0); EOS % 3.3 % (0-4.5); HEMATOCRIT 34.3 % (32.4-45.2); HEMOGLOBIN 11.8 GM/dL (10.7-15.3); LYMPH % 11.6 % (8-40); MCH 31.9 pg (25.7-33.7); MCHC 34.5 g/dl (32.0-36.0); MEAN CELL VOLUME 92.3 fl (80-96); MEAN PLT VOLUME 8.2 fl (7.5-11.1); MONO % 5.5 % (3.8-10.2); NEUT % 79.2 % (42.8-82.8); PLATELET COUNT 184 K/MM3 (134-434); RBC 3.71 M/mm3 (3.60-5.2); WHITE BLOOD COUNT 7.8 K/mm3 (4.0-10.0)
[2020-05-31 11:23] LABS: EPI CELLS 5 /uL (0-25.1); HYALINE CASTS 0 /uL (0-3.1); URINE APPEARANCE CLEAR; URINE BACTERIA 4 /uL (0-1359); URINE BILIRUBIN NEGATIVE (NEGATIVE); URINE COLOR YELLOW; URINE GLUCOSE (UA) NEGATIVE (NEGATIVE); URINE KETONE NEGATIVE (NEGATIVE); URINE LEUK ESTERASE NEGATIVE (NEGATIVE); URINE NITRITE NEGATIVE (NEGATIVE); URINE PROTEIN TRACE (NEGATIVE); URINE RBC 96 /uL (0-23.9); URINE WBC 17 /uL (0-25.8)
[2020-05-31 11:26] LABS: POTASSIUM 3.9 mmol/L (3.5-5.1)
[2020-05-31 11:27] LABS: MAGNESIUM 1.5 mg/dL (1.8-2.4)
[2020-05-31 11:28] LABS: BLOOD UREA NITROGEN 20.2 mg/dL (7-18); CALCIUM 9.4 mg/dL (8.5-10.1)
[2020-05-31 11:31] LABS: CREATININE 0.8 mg/dL (0.55-1.3)
[2020-05-31 11:33] LABS: BILIRUBIN,TOTAL 0.5 mg/dL (0.2-1)
[2020-05-31] MEDS ORDERED: MAGNESIUM SULF 50% (8.12 MEQ/2 ML-1 GM VIAL) IVPB ONE (11:34)
[2020-05-31] MEDS ORDERED: MAGNESIUM 1GM/D5W - 1 GM/100 ML IVPB IVPB ONE (11:51)
[2020-05-31] MEDS ORDERED: CEFTRIAXONE 1 GM/50 ML BAG ONE (13:36)
[2020-05-31] MEDS ORDERED: METOPROLOL TARTRATE 25 MG TABLET (FP) ONE ×2 (13:36→23:43)
[2020-05-31] MEDS: CEFTRIAXONE 1 GM in DEXTROSE 5%-WATER - 50 ML IVPB SCH (13:38)
[2020-05-31] MEDS: METOPROLOL TARTRATE 25 MG TABLET (FP) PO SCH ×2 (13:54→23:48)
[2020-05-31] MEDS ORDERED: SERTRALINE HCL 50 MG TABLET (FP) ONE (23:44)
[2020-05-31] MEDS: SERTRALINE HCL 50 MG TABLET (FP) PO SCH (23:48)
[2020-06-01 01:33] VITALS: BMI 18.5
[2020-06-01 06:44] LABS: POTASSIUM 3.8 mmol/L (3.5-5.1)
[2020-06-01 06:47] LABS: BLOOD UREA NITROGEN 21.6 mg/dL (7-18); CALCIUM 9.9 mg/dL (8.5-10.1)
[2020-06-01 06:51] LABS: CREATININE 0.7 mg/dL (0.55-1.3); PHOSPHOROUS 3.5 mg/dL (2.5-4.9)
[2020-06-01] MEDS ORDERED: SODIUM CHLORIDE 1,000 ML IV SCH (08:00)
[2020-06-01] MEDS: SERTRALINE HCL 50 MG TABLET (FP) PO SCH ×2 (11:18→21:26)
[2020-06-01] MEDS: METOPROLOL TARTRATE 25 MG TABLET (FP) PO SCH ×2 (11:19→21:25)
[2020-06-01] MEDS: ENOXAPARIN NA (PORCINE) 30 MG/0.3 ML DISP.SYRIN SQ SCH (11:19)
[2020-06-01] MEDS: CEFTRIAXONE 1 GM in DEXTROSE 5%-WATER - 50 ML IVPB SCH (13:15)
[2020-06-01] MEDS ORDERED: amLODIPine BESYLATE 2.5 MG TABLET (FP) PO ONE ×2 (14:55→18:52)
[2020-06-01] MEDS: ASPIRIN COATED 81 MG TABLET.EC PO SCH (16:59)
[2020-06-01] MEDS ORDERED: LORazepam 0.5 MG TABLET PO ONE (18:44)
[2020-06-01] MEDS ORDERED: MELATONIN 5 MG TABLETS PO ONE (21:52)
[2020-06-02 08:04] LABS: BASO % 0.3 % (0-2.0); EOS % 1.5 % (0-4.5); HEMATOCRIT 35.7 % (32.4-45.2); HEMOGLOBIN 12.2 GM/dL (10.7-15.3); LYMPH % 11.4 % (8-40); MCH 31.2 pg (25.7-33.7); MCHC 34.1 g/dl (32.0-36.0); MEAN CELL VOLUME 91.3 fl (80-96); MEAN PLT VOLUME 8.1 fl (7.5-11.1); MONO % 7.4 % (3.8-10.2); NEUT % 79.4 % (42.8-82.8); PLATELET COUNT 203 K/MM3 (134-434); RBC 3.91 M/mm3 (3.60-5.2); RDW 13.9 % (11.6-15.6); WHITE BLOOD COUNT 10.4 K/mm3 (4.0-10.0)
[2020-06-02 08:25] LABS: POTASSIUM 3.6 mmol/L (3.5-5.1)
[2020-06-02 08:36] LABS: CALCIUM 9.4 mg/dL (8.5-10.1); MAGNESIUM 1.9 mg/dL (1.8-2.4)
[2020-06-02 08:38] LABS: ALBUMIN 3.7 g/dl (3.4-5.0)
[2020-06-02 08:40] LABS: CREATININE 0.7 mg/dL (0.55-1.3)
[2020-06-02 08:41] LABS: BLOOD UREA NITROGEN 18.5 mg/dL (7-18); PHOSPHOROUS 3.6 mg/dL (2.5-4.9)
[2020-06-02 08:42] LABS: TOT PROT 6.8 g/dl (6.4-8.2)
[2020-06-02 08:43] LABS: BILIRUBIN,TOTAL 1.1 mg/dL (0.2-1)
[2020-06-02] MEDS ORDERED: POTASSIUM CHLORIDE TABS 20 MEQ TABLET.ER (FP) PO ONE ×2 (09:13→18:45)
[2020-06-02] MEDS ORDERED: SODIUM CHLORIDE 1,000 ML IV SCH (10:00)
[2020-06-02] MEDS ORDERED: cefTRIAXone SODIUM 1 GM VIAL ONE (12:01)
[2020-06-02] MEDS ORDERED: DEXTROSE 5%-WATER - 50 ML IVPB ONE (12:01)
[2020-06-02] MEDS: ASPIRIN COATED 81 MG TABLET.EC PO SCH (12:21)
[2020-06-02] MEDS: SERTRALINE HCL 50 MG TABLET (FP) PO SCH ×2 (12:21→22:10)
[2020-06-02] MEDS: METOPROLOL TARTRATE 25 MG TABLET (FP) PO SCH ×2 (12:21→22:11)
[2020-06-02] MEDS: ENOXAPARIN NA (PORCINE) 30 MG/0.3 ML DISP.SYRIN SQ SCH (12:22)
[2020-06-02] MEDS: CEFTRIAXONE 1 GM in DEXTROSE 5%-WATER - 50 ML IVPB SCH (12:37)
[2020-06-02] MEDS ORDERED: amLODIPine BESYLATE 2.5 MG TABLET (FP) PO SCH (22:00)
[2020-06-02] MEDS: amLODIPine BESYLATE 2.5 MG TABLET (FP) PO SCH (22:10)
[2020-06-03] MEDS ORDERED: MELATONIN 5 MG TABLETS PO ONE (02:35)
[2020-06-03 08:33] LABS: BASO % 0.3 % (0-2.0); EOS % 1.2 % (0-4.5); HEMATOCRIT 35.3 % (32.4-45.2); LYMPH % 8.7 % (8-40); MCH 31.1 pg (25.7-33.7); MEAN CELL VOLUME 91.6 fl (80-96); MEAN PLT VOLUME 8.3 fl (7.5-11.1); NEUT % 83.8 % (42.8-82.8); PLATELET COUNT 203 K/MM3 (134-434); RBC 3.85 M/mm3 (3.60-5.2); RDW 14.1 % (11.6-15.6); WHITE BLOOD COUNT 12.3 K/mm3 (4.0-10.0)
[2020-06-03 08:50] LABS: POTASSIUM 3.9 mmol/L (3.5-5.1)
[2020-06-03 09:26] LABS: ALBUMIN 3.9 g/dl (3.4-5.0); BLOOD UREA NITROGEN 19.1 mg/dL (7-18); CALCIUM 9.5 mg/dL (8.5-10.1); MAGNESIUM 1.8 mg/dL (1.8-2.4)
[2020-06-03 09:29] LABS: CREATININE 0.8 mg/dL (0.55-1.3); PHOSPHOROUS 3.2 mg/dL (2.5-4.9)
[2020-06-03 09:30] LABS: BILIRUBIN,TOTAL 0.9 mg/dL (0.2-1); TOT PROT 7.2 g/dl (6.4-8.2)
[2020-06-03] MEDS: ASPIRIN COATED 81 MG TABLET.EC PO SCH (10:21)
[2020-06-03] MEDS: METOPROLOL TARTRATE 25 MG TABLET (FP) PO SCH ×2 (10:21→21:09)
[2020-06-03] MEDS: ENOXAPARIN NA (PORCINE) 30 MG/0.3 ML DISP.SYRIN SQ SCH (10:22)
[2020-06-03] MEDS: CEFTRIAXONE 1 GM in DEXTROSE 5%-WATER - 50 ML IVPB SCH (10:22)
[2020-06-03] MEDS: SERTRALINE HCL 50 MG TABLET (FP) PO SCH ×2 (10:22→21:09)
[2020-06-03] MEDS ORDERED: HALOPERIDOL LACTATE 5 MG/ML IM ONE (13:16)
[2020-06-03] MEDS ORDERED: MAGNESIUM SULF 50% (8.12 MEQ/2 ML-1 GM VIAL) IVPB ONE (14:00)
[2020-06-03] MEDS ORDERED: MAGNESIUM OXIDE 400 MG TABLET (FP) PO ONE (14:30)
[2020-06-03] MEDS: amLODIPine BESYLATE 2.5 MG TABLET (FP) PO SCH (21:11)
[2020-06-04 08:33] LABS: BASO % 0.4 % (0-2.0); EOS % 2.6 % (0-4.5); HEMATOCRIT 37.6 % (32.4-45.2); LYMPH % 11.2 % (8-40); MCH 31.3 pg (25.7-33.7); MCHC 34.4 g/dl (32.0-36.0); MEAN PLT VOLUME 8.1 fl (7.5-11.1); MONO % 7.9 % (3.8-10.2); NEUT % 77.9 % (42.8-82.8); PLATELET COUNT 225 K/MM3 (134-434); RBC 4.13 M/mm3 (3.60-5.2); RDW 13.8 % (11.6-15.6); WHITE BLOOD COUNT 10.7 K/mm3 (4.0-10.0)
[2020-06-04] MEDS ORDERED: amLODIPine BESYLATE 5 MG TABLET (FP) PO ONE ×2 (08:43→09:43)
[2020-06-04 08:54] LABS: POTASSIUM 3.9 mmol/L (3.5-5.1)
[2020-06-04 08:56] LABS: CALCIUM 9.7 mg/dL (8.5-10.1)
[2020-06-04 08:57] LABS: ALBUMIN 4.2 g/dl (3.4-5.0); BLOOD UREA NITROGEN 17.1 mg/dL (7-18); MAGNESIUM 2.1 mg/dL (1.8-2.4)
[2020-06-04 09:00] LABS: CREATININE 0.7 mg/dL (0.55-1.3); PHOSPHOROUS 3.3 mg/dL (2.5-4.9)
[2020-06-04 09:02] LABS: BILIRUBIN,TOTAL 0.7 mg/dL (0.2-1); TOT PROT 7.6 g/dl (6.4-8.2)
[2020-06-04] MEDS ORDERED: cefTRIAXone SODIUM 1 GM VIAL ONE (09:28)
[2020-06-04] MEDS ORDERED: DEXTROSE 5%-WATER - 50 ML IVPB ONE (09:28)
[2020-06-04] MEDS: CEFTRIAXONE 1 GM in DEXTROSE 5%-WATER - 50 ML IVPB SCH (09:33)
[2020-06-04] MEDS: ENOXAPARIN NA (PORCINE) 30 MG/0.3 ML DISP.SYRIN SQ SCH (09:34)
[2020-06-04] MEDS: ASPIRIN COATED 81 MG TABLET.EC PO SCH (09:34)
[2020-06-04] MEDS: SERTRALINE HCL 50 MG TABLET (FP) PO SCH ×3 (09:34→21:31)
[2020-06-04] MEDS: METOPROLOL TARTRATE 25 MG TABLET (FP) PO SCH ×3 (09:34→21:31)
[2020-06-04] MEDS ORDERED: amLODIPine BESYLATE 5 MG TABLET (FP) PO SCH (09:50)
[2020-06-04] MEDS ORDERED: SODIUM CHLORIDE 1,000 ML IV SCH (16:30)
[2020-06-05 08:09] LABS: BASO % 0.3 % (0-2.0); EOS % 2.8 % (0-4.5); HEMATOCRIT 37.6 % (32.4-45.2); HEMOGLOBIN 12.6 GM/dL (10.7-15.3); MCH 30.9 pg (25.7-33.7); MCHC 33.6 g/dl (32.0-36.0); MEAN PLT VOLUME 8.1 fl (7.5-11.1); MONO % 7.5 % (3.8-10.2); NEUT % 78.4 % (42.8-82.8); PLATELET COUNT 233 K/MM3 (134-434); RBC 4.09 M/mm3 (3.60-5.2); RDW 13.9 % (11.6-15.6); WHITE BLOOD COUNT 10.1 K/mm3 (4.0-10.0)
[2020-06-05 08:25] LABS: ALBUMIN 3.9 g/dl (3.4-5.0); BLOOD UREA NITROGEN 24.3 mg/dL (7-18); MAGNESIUM 2.2 mg/dL (1.8-2.4)
[2020-06-05 08:28] LABS: CREATININE 0.8 mg/dL (0.55-1.3); PHOSPHOROUS 3.2 mg/dL (2.5-4.9)
[2020-06-05 08:30] LABS: BILIRUBIN,TOTAL 0.9 mg/dL (0.2-1); TOT PROT 7.2 g/dl (6.4-8.2)
[2020-06-05] MEDS: ASPIRIN COATED 81 MG TABLET.EC PO SCH (10:39)
[2020-06-05] MEDS: SERTRALINE HCL 50 MG TABLET (FP) PO SCH ×2 (10:39→21:28)
[2020-06-05] MEDS: ENOXAPARIN NA (PORCINE) 30 MG/0.3 ML DISP.SYRIN SQ SCH (10:39)
[2020-06-05] MEDS: METOPROLOL TARTRATE 25 MG TABLET (FP) PO SCH ×2 (10:39→21:27)
[2020-06-05] MEDS ORDERED: amLODIPine BESYLATE 5 MG TABLET (FP) PO SCH ×3 (14:38→20:00)
[2020-06-06] MEDS: ENOXAPARIN NA (PORCINE) 30 MG/0.3 ML DISP.SYRIN SQ SCH (09:05)
[2020-06-06] MEDS: METOPROLOL TARTRATE 25 MG TABLET (FP) PO SCH ×2 (09:06→21:48)
[2020-06-06] MEDS: SERTRALINE HCL 50 MG TABLET (FP) PO SCH ×2 (09:06→21:48)
[2020-06-06] MEDS: ASPIRIN COATED 81 MG TABLET.EC PO SCH (09:07)
[2020-06-06 09:19] LABS: BASO % 0.3 % (0-2.0); EOS % 1.9 % (0-4.5); HEMATOCRIT 36.4 % (32.4-45.2); HEMOGLOBIN 12.6 GM/dL (10.7-15.3); LYMPH % 11.7 % (8-40); MCH 32.3 pg (25.7-33.7); MCHC 34.6 g/dl (32.0-36.0); MEAN CELL VOLUME 93.3 fl (80-96); MEAN PLT VOLUME 8.5 fl (7.5-11.1); MONO % 6.1 % (3.8-10.2); PLATELET COUNT 225 K/MM3 (134-434); RDW 14.1 % (11.6-15.6)
[2020-06-06 09:40] LABS: POTASSIUM 3.9 mmol/L (3.5-5.1)
[2020-06-06] MEDS ORDERED: amLODIPine BESYLATE 5 MG TABLET (FP) PO SCH (09:50)
[2020-06-06 10:12] LABS: ALBUMIN 3.7 g/dl (3.4-5.0); BLOOD UREA NITROGEN 32.6 mg/dL (7-18); CALCIUM 9.5 mg/dL (8.5-10.1); MAGNESIUM 2.1 mg/dL (1.8-2.4)
[2020-06-06 10:15] LABS: BILIRUBIN,TOTAL 0.6 mg/dL (0.2-1); TOT PROT 7.1 g/dl (6.4-8.2)
[2020-06-06 10:16] LABS: CREATININE 0.9 mg/dL (0.55-1.3); PHOSPHOROUS 2.7 mg/dL (2.5-4.9)
[2020-06-06] MEDS: amLODIPine BESYLATE 5 MG TABLET (FP) PO SCH ×2 (12:22→21:48)
[2020-06-07 09:01] LABS: BASO % 0.2 % (0-2.0); EOS % 1.2 % (0-4.5); HEMATOCRIT 35.5 % (32.4-45.2); HEMOGLOBIN 11.9 GM/dL (10.7-15.3); LYMPH % 6.6 % (8-40); MCH 31.1 pg (25.7-33.7); MCHC 33.6 g/dl (32.0-36.0); MEAN CELL VOLUME 92.6 fl (80-96); MEAN PLT VOLUME 8.5 fl (7.5-11.1); MONO % 7.3 % (3.8-10.2); NEUT % 84.7 % (42.8-82.8); PLATELET COUNT 231 K/MM3 (134-434); RBC 3.83 M/mm3 (3.60-5.2); RDW 13.8 % (11.6-15.6)
[2020-06-07 09:15] LABS: POTASSIUM 3.9 mmol/L (3.5-5.1)
[2020-06-07 09:18] LABS: BLOOD UREA NITROGEN 28.4 mg/dL (7-18); CALCIUM 9.3 mg/dL (8.5-10.1)
[2020-06-07 09:19] LABS: ALBUMIN 3.6 g/dl (3.4-5.0)
[2020-06-07 09:22] LABS: CREATININE 0.8 mg/dL (0.55-1.3)
[2020-06-07 09:23] LABS: PHOSPHOROUS 2.4 mg/dL (2.5-4.9)
[2020-06-07 09:24] LABS: BILIRUBIN,TOTAL 0.5 mg/dL (0.2-1); TOT PROT 7.2 g/dl (6.4-8.2)
[2020-06-07] MEDS: ENOXAPARIN NA (PORCINE) 30 MG/0.3 ML DISP.SYRIN SQ SCH (11:12)
[2020-06-07] MEDS: amLODIPine BESYLATE 5 MG TABLET (FP) PO SCH ×2 (11:12→21:55)
[2020-06-07] MEDS: METOPROLOL TARTRATE 25 MG TABLET (FP) PO SCH ×2 (11:12→21:54)
[2020-06-07] MEDS: ASPIRIN COATED 81 MG TABLET.EC PO SCH (11:12)
[2020-06-07] MEDS: SERTRALINE HCL 50 MG TABLET (FP) PO SCH ×2 (11:12→21:55)
[2020-06-07] MEDS ORDERED: SODIUM PHOSPHATE - 15 MM in SODIUM CHLORIDE 250 ML IVPB ONE (11:30)
[2020-06-07 13:17] LABS: URINE APPEARANCE CLEAR; URINE BILIRUBIN NEGATIVE (NEGATIVE); URINE COLOR YELLOW; URINE GLUCOSE (UA) 3+ (NEGATIVE); URINE KETONE NEGATIVE (NEGATIVE); URINE LEUK ESTERASE NEGATIVE (NEGATIVE); URINE NITRITE NEGATIVE (NEGATIVE); URINE PROTEIN TRACE (NEGATIVE); URINE UROBILINOGEN 0.2 mg/dL (0.2-1.0)
[2020-06-07] MEDS: INSULIN SLIDING SCALE (NOVOLOG) 1 VIAL SQ SCH (22:00)
[2020-06-08] MEDS: INSULIN SLIDING SCALE (NOVOLOG) 1 VIAL SQ SCH ×4 (06:21→22:24)
[2020-06-08 08:36] LABS: BASO % 0.3 % (0-2.0); EOS % 0.5 % (0-4.5); HEMATOCRIT 34.1 % (32.4-45.2); HEMOGLOBIN 11.7 GM/dL (10.7-15.3); MCH 31.8 pg (25.7-33.7); MCHC 34.3 g/dl (32.0-36.0); MEAN CELL VOLUME 92.7 fl (80-96); MEAN PLT VOLUME 8.6 fl (7.5-11.1); MONO % 7.7 % (3.8-10.2); NEUT % 84.5 % (42.8-82.8); PLATELET COUNT 214 K/MM3 (134-434); RBC 3.68 M/mm3 (3.60-5.2); WHITE BLOOD COUNT 13.8 K/mm3 (4.0-10.0)
[2020-06-08 08:51] LABS: POTASSIUM 3.4 mmol/L (3.5-5.1)
[2020-06-08 08:56] LABS: ALBUMIN 3.2 g/dl (3.4-5.0); BLOOD UREA NITROGEN 18.6 mg/dL (7-18); CALCIUM 9.3 mg/dL (8.5-10.1)
[2020-06-08 08:57] LABS: MAGNESIUM 1.9 mg/dL (1.8-2.4)
[2020-06-08 09:00] LABS: BILIRUBIN,TOTAL 0.8 mg/dL (0.2-1); CREATININE 0.7 mg/dL (0.55-1.3); PHOSPHOROUS 2.5 mg/dL (2.5-4.9)
[2020-06-08 09:01] LABS: TOT PROT 6.8 g/dl (6.4-8.2)
[2020-06-08] MEDS ORDERED: POTASSIUM CHLORIDE TABS 20 MEQ TABLET.ER (FP) PO ONE (10:00)
[2020-06-08] MEDS ORDERED: KCL 10 MEQ IVPB 10 MEQ/100 ML INFUS.BAG IVPB SCH (10:00)
[2020-06-08] MEDS: ASPIRIN COATED 81 MG TABLET.EC PO SCH (10:24)
[2020-06-08] MEDS: amLODIPine BESYLATE 5 MG TABLET (FP) PO SCH ×2 (10:24→22:20)
[2020-06-08] MEDS: SERTRALINE HCL 50 MG TABLET (FP) PO SCH ×2 (10:25→22:20)
[2020-06-08] MEDS: ENOXAPARIN NA (PORCINE) 30 MG/0.3 ML DISP.SYRIN SQ SCH (10:25)
[2020-06-08] MEDS: METOPROLOL TARTRATE 25 MG TABLET (FP) PO SCH ×2 (10:25→22:18)
[2020-06-08] MEDS ORDERED: SODIUM PHOSPHATE - 15 MM in SODIUM CHLORIDE 250 ML IVPB ONE (10:30)
[2020-06-08] MEDS ORDERED: INSULIN (NOVOLOG) ASPART 100 UNITS/ML 10ML VIAL ONE (11:42)
[2020-06-09] MEDS: INSULIN SLIDING SCALE (NOVOLOG) 1 VIAL SQ SCH ×3 (06:21→17:02)
[2020-06-09 08:03] LABS: BASO % 0.1 % (0-2.0); EOS % 0.4 % (0-4.5); HEMATOCRIT 31.9 % (32.4-45.2); HEMOGLOBIN 10.8 GM/dL (10.7-15.3); LYMPH % 5.7 % (8-40); MCH 31.3 pg (25.7-33.7); MEAN PLT VOLUME 8.4 fl (7.5-11.1); MONO % 7.2 % (3.8-10.2); NEUT % 86.6 % (42.8-82.8); PLATELET COUNT 233 K/MM3 (134-434); RBC 3.47 M/mm3 (3.60-5.2); RDW 13.8 % (11.6-15.6); WHITE BLOOD COUNT 15.4 K/mm3 (4.0-10.0)
[2020-06-09 08:11] LABS: POTASSIUM 3.1 mmol/L (3.5-5.1)
[2020-06-09 08:23] LABS: BLOOD UREA NITROGEN 18.8 mg/dL (7-18); MAGNESIUM 1.9 mg/dL (1.8-2.4)
[2020-06-09 08:25] LABS: CREATININE 0.8 mg/dL (0.55-1.3)
[2020-06-09 08:26] LABS: BILIRUBIN,TOTAL 0.6 mg/dL (0.2-1); PHOSPHOROUS 2.4 mg/dL (2.5-4.9); TOT PROT 6.6 g/dl (6.4-8.2)
[2020-06-09] MEDS: amLODIPine BESYLATE 5 MG TABLET (FP) PO SCH (09:49)
[2020-06-09] MEDS: METOPROLOL TARTRATE 25 MG TABLET (FP) PO SCH (09:49)
[2020-06-09] MEDS: SERTRALINE HCL 50 MG TABLET (FP) PO SCH (09:50)
[2020-06-09] MEDS: ENOXAPARIN NA (PORCINE) 30 MG/0.3 ML DISP.SYRIN SQ SCH (09:50)
[2020-06-09] MEDS: ASPIRIN COATED 81 MG TABLET.EC PO SCH (09:50)
[2020-06-09 11:08] VITALS: TEMP 98
[2020-06-09] MEDS ORDERED: INSULIN (NOVOLOG) ASPART 100 UNITS/ML 10ML VIAL ONE (12:33)
[2020-06-09 14:02] LABS: PREALBUMIN 10.1 mg/dl (20-40)
[2020-06-09] MEDS ORDERED: POTASSIUM CHLORIDE TABS 20 MEQ TABLET.ER (FP) PO ONE (14:18)
[2020-06-09] MEDS ORDERED: NAPH,MB-DB/K PH,MBDB POWDER PACKET PO ONE (14:19)
[2020-06-09 14:50] VITALS: BP 129/83; PULSE 101
[2020-06-09] MEDS: KCL 10 MEQ IVPB 10 MEQ/100 ML INFUS.BAG IVPB SCH ×3 (14:56→16:42)
== END 2020-06-09 19:40 | DRG 689 ==
LOC: JER 09:35 → JERBED 13:06 → OBSVTOIN 13:06 → J6WEST-2 06-01 00:18 → J6S 06-01 20:57
PROVIDERS: ADMIT Internal Medicine; ATTEND Internal Medicine
DX: N39.0 Urinary tract infection, site not specified (principal); E43 Unspecified severe protein-calorie malnutrition; F03.91 Unspecified dementia, unspecified severity, with behavioral disturbance; Z68.1 Body mass index [BMI] 19.9 or less, adult; R62.7 Adult failure to thrive; I10 Essential (primary) hypertension; E11.9 Type 2 diabetes mellitus without complications; E83.42 Hypomagnesemia; E78.5 Hyperlipidemia, unspecified; D72.829 Elevated white blood cell count, unspecified; E86.0 Dehydration
CPT/HCPCS: 36415; 70450-TC; 71045-TC-FY; 72125-TC; 80048; 80053; 80061; 81003; 82962; 83721; 83735; 84100; 84134; 84443; 84484; 85025; 87040; 87086; 87804; 93005; 93010; 97116-GP; 97161-GP; 99285-25; C9803; U0003